=== PATIENT | male | born 1935 | race Caucasian/White ===

== ENCOUNTER → 2019-09-24 12:45 | Outpatient (CLI) | payer MEDICARE | END | disposition home or self-care (01) | LOC: D.RAD 12:45 | PROVIDERS: ATTEND Family Medicine | DX: R13.12 Dysphagia, oropharyngeal phase (principal); I48.91 Unspecified atrial fibrillation ==

== ENCOUNTER 2019-10-06 16:49 | Inpatient (IN) | payer MEDICARE ==
[~2019-10-06] VITALS: Ht 182.9 cm; Wt 53.6 kg
[2019-10-06 17:14] VITALS: BP 134/98; BMI 16.3
--- NOTE | 2019-10-06 17:30 | NUR ---
PATIENT ADMITTED TO ROOM 2211. ADMISSION COMPLETE. IV SITED TO [facility] WITH ONE ATTEMPT WITH 22 GAUGE. FALL PRECAUTIONS IN PLACE. DENIES NEEDS. BED LOW. CALL CORDOBA AND PERSONAL ITEMS IN REACH. WILL CONTINUE TO MONTIOR. SON BRINGING MED LIST TO [facility].
[2019-10-06 17:45] LABS: BASOPHILS 0.4 % (0-2); EOSINOPHILS 3.7 % (0-7); HEMATOCRIT 34.7 % (42.0-54.0); HEMOGLOBIN 11.1 g/dL (13.5-17.5); IMMATURE GRANULOCYTES 0.3 % (0-5); MCH 31.1 pg (26.0-34.0); MCV 97.2 fL (80.0-100.0); MEAN PLATELET VOLUME 9.3 fL (7.4-10.4); MONOCYTES 6.6 % (2-11); PLATELET COUNT 300 10x3/uL (130-400); RBC 3.57 10x6/uL (4.20-6.10); RDW 14.8 % (11.5-14.5); WBC 7.8 10x3/uL (4.8-10.8)
[2019-10-06 17:59] LABS: INR 1.15 (0.85-1.17); PROTIME 14.6 SECONDS (11.6-15.0)
[2019-10-06 18:00] LABS: APTT 36.8 SECONDS (22.8-39.4)
[2019-10-06 18:11] LABS: CARBON DIOXIDE 29.5 mmol/L (21.0-32.0); CREATININE - SERUM 1.3 mg/dL (0.6-1.3); POTASSIUM - SERUM 4.5 mmol/L (3.5-5.1); PRE-ALBUMIN 13.6 mg/dL (18.0-35.7)
--- NOTE | 2019-10-06 18:25 | NUR ---
RESTING IN BED. DENIES NEEDS. WILL CONTINUE TO MONITOR.
[2019-10-06] MEDS ORDERED: ASPIRIN325 MG PO (19:17)
[2019-10-06] MEDS ORDERED: ULTRAM50 MG PO (19:18)
[2019-10-06] MEDS ORDERED: LOPRESSOR25 MG PO (19:18)
--- NOTE | 2019-10-06 19:45 | NUR ---
SUPINE IN BED, A&O X 4. REPORTS HE AMBULATES WELL WITH WALKER. WALKER BROUGHT TO ROOM. PT USES URINAL, MELINA IN USE. WILL CONTINUE TO MONITOR.
[2019-10-06 21:28] VITALS: BP 128/60
[2019-10-07] VITALS (7 sets, daily range): BP systolic 118–141; BP diastolic 62–88; Ht 182.9 cm; Wt 53.6 kg
[2019-10-07 04:40] LABS: BASOPHILS 0.3 % (0-2); EOSINOPHILS 2.8 % (0-7); HEMATOCRIT 33.5 % (42.0-54.0); HEMOGLOBIN 10.7 g/dL (13.5-17.5); IMMATURE GRANULOCYTES 0.1 % (0-5); LYMPHOCYTES 10.4 % (15-50); MCH 30.9 pg (26.0-34.0); MCHC 31.9 g/dL (31.0-37.0); MCV 96.8 fL (80.0-100.0); MEAN PLATELET VOLUME 9.2 fL (7.4-10.4); MONOCYTES 7.3 % (2-11); NEUTROPHILS 79.1 % (40-80); PLATELET COUNT 309 10x3/uL (130-400); RBC 3.46 10x6/uL (4.20-6.10); RDW 14.7 % (11.5-14.5); WBC 7.4 10x3/uL (4.8-10.8)
[2019-10-07 04:53] LABS: % SATURATION 15 % (15-55); IRON 30 ug/dl (35-150); TOTAL IRON BIND CAPACITY 192 ug/dl (260-445); UNSAT IRON BIND CAPACITY 162 ug/dl (150-375)
--- NOTE | 2019-10-07 05:11 | NUR ---
I have reviewed this patient and I concur with the Shift Assessment completed by the Licensed Practical Nurse today this shift.
[2019-10-07 05:19] LABS: ANION GAP 7.7 mmol/L (8-16); CALCIUM 7.9 mg/dL (8.5-10.1); CARBON DIOXIDE 30.5 mmol/L (21.0-32.0); CREATININE - SERUM 1.2 mg/dL (0.6-1.3); PHOSPHOROUS 3.3 mg/dL (2.5-4.9); POTASSIUM - SERUM 4.2 mmol/L (3.5-5.1); THYROID STIMULATING HORMONE 1.28 uIU/mL (0.36-3.74)
--- NOTE | 2019-10-07 08:00 | NUR ---
ASSESSMENT PER FLOW SHEET. PT IS WITHOUT DISTRESS.FALL PREVENTION IN PLACE WITH MELINA. DOOR OPEN TO MONITOR
--- NOTE | 2019-10-07 11:53 | NUR ---
TO OR VIA BED
--- NOTE | 2019-10-07 13:30 | NUR ---
MARKED TACYCARDIA SECONDARY TO ADMINISTRATION OF GLYCOPYRROLATE IN OR, PER AL CHEPE DEVELOPER ADVOCATE
--- NOTE | 2019-10-07 14:21 | NUR ---
BACK FROM OR. PATIENT IS AWAKE AND WITHOUT DISTRESS.FALL PREVENTION IN PLACE
--- NOTE | 2019-10-07 20:00 | NUR ---
A&0 X 4. UNABLE TO VOID. BLADDER SCAN READS +999ML. 14FR HENRY INSERTED. PT REPORTS IMMEDIATE RELIEF. 900MLS EMPTIED FROM BLADDER. SECURED TO RIGHT LEG. REDRESSED DRESSING AROUND NEW PEG. IV TO LEFT FOREARM OUT. CATHETER INTACT. WILL CONTINUE TO MONITOR.
[2019-10-07 23:06] LABS: BILIRUBIN NEGATIVE (NEGATIVE); GLUCOSE NEGATIVE (NEGATIVE); KETONE NEGATIVE (NEGATIVE); NITRITE NEGATIVE (NEGATIVE); SPECIFIC GRAVITY 1.015 (1.005-1.020); UROBILINOGEN NORMAL (NORMAL)
[2019-10-07 23:07] LABS: BACTERIA FEW /hpf (NEGATIVE); RED CELLS - URINE 0-5 /hpf (0-5); WHITE CELLS - URINE OCC /hpf (NEGATIVE)
[2019-10-08] VITALS (7 sets, daily range): BP systolic 93–1143; BP diastolic 48–77
[2019-10-08 05:30] LABS: BASOPHILS 0 % (0-2); EOSINOPHILS 0 % (0-7); HEMATOCRIT 33.5 % (42.0-54.0); HEMOGLOBIN 10.6 g/dL (13.5-17.5); IMMATURE GRANULOCYTES 0.3 % (0-5); MCH 30.6 pg (26.0-34.0); MCHC 31.6 g/dL (31.0-37.0); MCV 96.8 fL (80.0-100.0); MEAN PLATELET VOLUME 9.3 fL (7.4-10.4); MONOCYTES 5.7 % (2-11); PLATELET COUNT 283 10x3/uL (130-400); RBC 3.46 10x6/uL (4.20-6.10); RDW 14.6 % (11.5-14.5)
[2019-10-08 05:36] LABS: WBC 14.4 10x3/uL (4.8-10.8)
[2019-10-08 05:55] LABS: ANION GAP 11.7 mmol/L (8-16); CALCIUM 7.8 mg/dL (8.5-10.1); CARBON DIOXIDE 26.8 mmol/L (21.0-32.0); CREATININE - SERUM 1.1 mg/dL (0.6-1.3); POTASSIUM - SERUM 4.5 mmol/L (3.5-5.1)
[2019-10-08 06:00] LABS: PHOSPHOROUS 4.4 mg/dL (2.5-4.9)
--- NOTE | 2019-10-08 08:00 | NUR ---
ASSESSMENT PER FLOW SHEET. PATIENT IS WITHOUT DISTRESS.FALL PREVENTION IN PLACE.
--- NOTE | 2019-10-08 10:01 | NUR ---
NUTRITION F/U TUBE FEED ORDERS WRITTEN PER MD CONSULT. WILL NEED TO MONITOR LABS FOR SIGNS OF REFEEDING SYNDROME. MAY REQUIRE TUBE FEED RATE ADJUSTMENT AFTER D/C DEPENDING ON WT GAIN/LOSS. RD FOLLOWING
--- NOTE | 2019-10-08 12:08 | MORECARE ---
CASE MANAGEMENT DISCHARGE SUMMARY PATIENT: SHE MULTANI UNIT: [id number] ADM DATE: 10/06/19 AGE: 84 : 33 SEX: M ROOM/BED: D.2211 AUTHOR: ELSIE SHELTON PHYSICIAN: REFERRING PHYSICIAN: HAKAN MEYER MD DATE OF SERVICE: 10/08/19 Discharge Plan Patient Name: SHE MULTANI Facility: [facility]:[place] : 1935 Planned Disposition: Home with Home Health Anticipated Discharge Date: Discharge Date: Expected LOS: Initial Reviewer: [email or web address] Initial Review Date: 10/06/2019 Generated: 10/08/19 1:08 pm DCPIA - Discharge Planning Initial Assessment Updated by [email or web address]: Charlene Ng on 10/08/19 12:03 pm * Is the patient Alert and Oriented? Yes * How many steps to enter\exit or inside your home? * PCP NANNETTE LIRA * Pharmacy [facility] * Preadmission Environment Home with Family * ADLs Independent * Equipment Grab Bars Rolling Walker Wheelchair * List name and contact numbers for known caregivers / representatives who currently or will assist patient after discharge: YEVGENIY (NEPHEW) [phone] * Verbal permission to speak to the caregivers and representatives has been obtained from the patient. N/A * Community resources currently utilized None * Additional services required to return to the preadmission environment? Yes * Can the patient safely return to the preadmission environment? Yes * Has this patient been hospitalized within the prior 30 days at any hospital? No Patient Name: SHE MULTANI Page [phone] at 1208 All edits/amendments must be made on the electronic document DICTATION DATE: 10/08/191207 MATHEMATICS LECTURER: CYNDI 10/08/19 1208 RPT#: [id number] DC DATE: STATUS: ADM IN [facility] [address] [place] [address] END OF REPORT
--- NOTE | 2019-10-08 12:15 | MORECARE ---
CASE MANAGEMENT DISCHARGE SUMMARY PATIENT: SHE MULTANI UNIT: [id number] ADM DATE: 10/06/19 AGE: 84 : 33 SEX: M ROOM/BED: D.2211 AUTHOR: CATDOC PHYSICIAN: REFERRING PHYSICIAN: HAKAN MEYER MD DATE OF SERVICE: 10/08/19 Discharge Plan Patient Name: SHE MULTANI Facility: [facility]:[place] : 1935 Planned Disposition: Home with Home Health Anticipated Discharge Date: Discharge Date: Expected LOS: Initial Reviewer: [email or web address] Initial Review Date: 10/06/2019 Generated: 10/08/19 1:14 pm Comments DCP- Discharge Planning Updated by [email or web address]: Charlene Ng on 10/08/19 11:[address] Patient Name: SHE MULTANI Admission Status: Elective Accout number: [id number] Admission Date: 10-06-2019 : 1935 Admission Diagnosis: Attending: HAKAN MEYER Current LOS: 2 Anticipated DC Date: Planned Disposition: Home with Home Health Primary Insurance: MEDICARE A & B Discharge Planning Comments: CM met with patient to complete initial dc planning assessment. CM educated patient on the CM role and verbal consent given by patient to complete assessment. Patient lives at home with his nephew. At discharge patient plans to return home and feels this is a safe discharge. CM discussed availability of home health, rehab services, and medical equipment. Patient has a wheelchair, walker and grab bars at home. His nephew will be his regional flatbed truck driver home. He has a new PEG tube and will need teaching and education on that. EUGENE signed with [facility]. I will send referral to [facility]. Patient denied known discharge needs at this time. CM will continue to follow and will assist as needed with dc plans/needs. Band Booker: Charlene Ng DCPIA - Discharge Planning Initial Assessment Updated by [email or web address]: Charlene Ng on 10/08/19 12:03 pm * Is the patient Alert and Oriented? Yes * How many steps to enter\exit or inside your home? * PCP NANNETTE LIRA * Pharmacy [facility] [address] * Preadmission Environment Home with Family * ADLs Independent * Equipment Grab Bars Rolling Walker Wheelchair * List name and contact numbers for known caregivers / representatives who currently or will assist patient after discharge: YEVGENIY (NEPHEW) [phone] * Verbal permission to speak to the caregivers and representatives has been obtained from the patient. N/A * Community resources currently utilized None * Additional services required to return to the preadmission environment? Yes * Can the patient safely return to the preadmission environment? Yes * Has this patient been hospitalized within the prior 30 days at any hospital? No Last DP export: 10/08/19 11:08 a Patient Name: SHE MULTANI Page [phone] at 1215 All edits/amendments must be made on the electronic document DICTATION DATE: 10/08/191213 HISTORICAL INTERPRETER: CYNDI 10/08/191213 RPT#: [id number] DC DATE: STATUS: ADM IN [facility] [address] [place] [address] END OF REPORT
--- NOTE | 2019-10-08 12:28 | MORECARE ---
CASE MANAGEMENT DISCHARGE SUMMARY PATIENT: SHE MULTANI UNIT: [id number] ADM DATE: 10/06/19 AGE: 84 : 33 SEX: M ROOM/BED: D.2211 AUTHOR: CATDOC PHYSICIAN: REFERRING PHYSICIAN: HAKAN MEYER MD DATE OF SERVICE: 10/08/19 Discharge Plan Patient Name: SHE MULTANI Facility: [facility]:[place] : 1935 Planned Disposition: Home with Home Health Anticipated Discharge Date: Discharge Date: Expected LOS: Initial Reviewer: [email or web address] Initial Review Date: 10/06/2019 Generated: 10/08/19 1:27 pm Comments DCP- Discharge Planning Updated by [email or web address]: Charlene Ng on 10/08/19 11:[address] Patient Name: SHE MULTANI Admission Status: Elective Accout number: [id number] Admission Date: 10-06-2019 : 1935 Admission Diagnosis: Attending: HAKAN MEYER Current LOS: 2 Anticipated DC Date: Planned Disposition: Home with Home Health Primary Insurance: MEDICARE A & B Discharge Planning Comments: CM met with patient to complete initial dc planning assessment. CM educated patient on the CM role and verbal consent given by patient to complete assessment. Patient lives at home with his nephew. At discharge patient plans to return home and feels this is a safe discharge. CM discussed availability of home health, rehab services, and medical equipment. Patient has a wheelchair, walker and grab bars at home. His nephew will be his septic pump truck driver home. He has a new PEG tube and will need teaching and education on that. EUGENE signed with [facility]. I will send referral to [facility]. Patient denied known discharge needs at this time. CM will continue to follow and will assist as needed with dc plans/needs. Photographic Plate Maker: Charlene Ng DCPIA - Discharge Planning Initial Assessment Updated by [email or web address]: Charlene Ng on 10/08/19 12:03 pm * Is the patient Alert and Oriented? Yes * How many steps to enter\exit or inside your home? * PCP NANNETTE LIRA * Pharmacy [facility] [address] * Preadmission Environment Home with Family * ADLs Independent * Equipment Grab Bars Rolling Walker Wheelchair * List name and contact numbers for known caregivers / representatives who currently or will assist patient after discharge: YEVGENIY (NEPHEW) [phone] * Verbal permission to speak to the caregivers and representatives has been obtained from the patient. N/A * Community resources currently utilized None * Additional services required to return to the preadmission environment? Yes * Can the patient safely return to the preadmission environment? Yes * Has this patient been hospitalized within the prior 30 days at any hospital? No External Providers External Provider: [facility] Next Contact Date: Service Request Date: Service Type: Resolution: Reviewer: Comments: Last DP export: 10/08/19 11:15 a Patient Name: SHE MULTANI Page [phone] at 1228 All edits/amendments must be made on the electronic document DICTATION DATE: 10/08/191226 CLINICAL MATERIAL HANDLER: CYNDI 10/08/197 RPT#: [id number] DC DATE: STATUS: ADM IN [facility] [address] [place] [address] END OF REPORT
--- NOTE | 2019-10-08 12:46 | NUR ---
NUTRITION F/U TUBE FEED RECOMMENDATIONS FOR PT AT DISCHARGE. 1)CHANGE TUBE FEEDS TO BOLUS. 2)ONE CAN JEVITY 1.2 SIX TIMES PER DAY TOLERATED. ONE CAN AT 7 AM, 10 AM, 1 PM, 4 PM, 7 PM, 10 PM. 3)50 CC H2O FLUSH BEFORE AND AFTER EACH BOLUS. 4)UP TO CHAIR OR HOB > 30 DEGREES WITH EACH BOLUS. 5)MONITOR WT WEEKLY AND ADJUST TUBE FEEDS IF NEEDED. RD FOLLOWING
--- NOTE | 2019-10-08 13:00 | NUR ---
TUBE FEEDING STARTED AT 20CC AN HOUR.FLUSH 25/HR.
--- NOTE | 2019-10-08 13:34 | MORECARE ---
CASE MANAGEMENT DISCHARGE SUMMARY PATIENT: SHE MULTANI UNIT: [id number] ADM DATE: 10/06/19 AGE: 84 : 33 SEX: M ROOM/BED: D.2211 AUTHOR: CATDOC PHYSICIAN: REFERRING PHYSICIAN: HAKAN MEYER MD DATE OF SERVICE: 10/08/19 Discharge Plan Patient Name: SHE MULTANI Facility: [facility]:[place] : 1935 Planned Disposition: Home with Home Health Anticipated Discharge Date: Discharge Date: Expected LOS: Initial Reviewer: [email or web address] Initial Review Date: 10/06/2019 Generated: 10/08/19 2:33 pm Comments DCP- Discharge Planning Updated by [id number]: Charlene Ng on 10/08/19 11:[address] Patient Name: SHE MULTANI Admission Status: Elective Accout number: [id number] Admission Date: 10-06-2019 : 1935 Admission Diagnosis: Attending: HAKAN MEYER Current LOS: 2 Anticipated DC Date: Planned Disposition: Home with Home Health Primary Insurance: MEDICARE A & B Discharge Planning Comments: CM met with patient to complete initial dc planning assessment. CM educated patient on the CM role and verbal consent given by patient to complete assessment. Patient lives at home with his nephew. At discharge patient plans to return home and feels this is a safe discharge. CM discussed availability of home health, rehab services, and medical equipment. Patient has a wheelchair, walker and grab bars at home. His nephew will be his jinriksha driver home. He has a new PEG tube and will need teaching and education on that. VIKAS signed with [facility]. I will send referral to [facility]. Patient denied known discharge needs at this time. CM will continue to follow and will assist as needed with dc plans/needs. Case Technician: Charlene Ng DCPIA - Discharge Planning Initial Assessment Updated by [email or web address]: Charlene Ng on 10/08/19 12:03 pm * Is the patient Alert and Oriented? Yes * How many steps to enter\exit or inside your home? * PCP NANNETTE LIRA * Pharmacy [facility] [address] * Preadmission Environment Home with Family * ADLs Independent * Equipment Grab Bars Rolling Walker Wheelchair * List name and contact numbers for known caregivers / representatives who currently or will assist patient after discharge: YEVGENIY (NEPHEW) [phone] * Verbal permission to speak to the caregivers and representatives has been obtained from the patient. N/A * Community resources currently utilized None * Additional services required to return to the preadmission environment? Yes * Can the patient safely return to the preadmission environment? Yes * Has this patient been hospitalized within the prior 30 days at any hospital? No External Providers External Provider: [facility] Next Contact Date: Service Request Date: Service Type: Resolution: Reviewer: Comments: Coverage Notice Reviewer: [email or web address] Antonieta Ng Notice Issued Date-Time: 10/08/2019 9:20 Notice Type: IM Discharge Notice Notice Delivered To: Patient Relationship to Patient: Supervisor Small Appliance Assembly Name: Delivery Method: HAND - Hand Delivered Cecy Days: Prior Verbal Notification: Recipient Understood Notice: Yes Recipient Signature: Yes Med Rec Note Co-signed by Attending: Coverage Notice Comment: Reviewer: [email or web address] Ng Notice Issued Date-Time: 10/08/2019 9:30 Notice Type: Patient Choice Letter Notice Delivered To: Patient Relationship to Patient: Supervisor Small Appliance Assembly Name: Delivery Method: HAND - Hand Delivered Cecy Days: Prior Verbal Notification: Recipient Understood Notice: Yes Recipient Signature: Yes Med Rec Note Co-signed by Attending: Coverage Notice Comment: vikas hall Last DP export: 10/08/19 11:28 a Patient Name: SHE MULTANI Page [phone] at 1334 All edits/amendments must be made on the electronic document DICTATION DATE: 10/08/19 1333 ARCHITECTURAL JOB CAPTAIN: CYNDI 10/08/19 1333 RPT#: [id number] DC DATE: STATUS: ADM IN [facility] [address] [place] [address] END OF REPORT
--- NOTE | 2019-10-08 21:01 | NUR ---
PEG TUBE RESIDUAL 85ML. HOLDING TUBE FEED AT 20ML/HR RIGHT NOW. WILL CHECK RESIDUAL AGAIN IN A COUPLE OF HOURS IF RESIDUAL HAS DECREASED I WILL INCREASE TUBE FEEDING. CALL LIGHT IN REACH. BED LOWERED AND LOCKED. PT STATES NO NEEDS AT THIS TIME.
--- NOTE | 2019-10-08 21:30 | NUR ---
PT IV INFULTRATED. NEW IV SITE RT FA 22G. ATTEMPTSX1. PT TOLERATED WELL. WILL CONTINUE FLUIDS. CALL LIGHT IN REACH. BED LOWERED AND LOCKED.
[2019-10-09] VITALS (10 sets, daily range): BP systolic 109–149; BP diastolic 53–78
--- NOTE | 2019-10-09 01:35 | NUR ---
PT RESTING IN BED. EYES CLOSED. NO SIGNS OF DISTRESS. BREATHING EVEN AND UNLABORED. IV SITE RT FA DRESSING CLEAN DRY AND INTACT. NO SIGNS OF INFECTION OR INFULTRATION. LUNG SOUNDS SIMINISHED INN LOWER LOBES. BOWEL SOUNDS ACTIVE. PEG TUBE LT ABD DRESSING CLEAN DRY AND INTACT. JEVITY 1.[address] HENRY IN [address]. WILL CONTINUE PLAN OF CARE. CALL LIGHT IN REACH. BED LOWERED AND LOCKED. BED RAILS UPX2. MELINA ALARM ON.
--- NOTE | 2019-10-09 02:02 | NUR ---
PEG TUBE RESIDUAL 50ML. INCREASED FEEDING BY 10CC/HR. NOW AT 30CC/HR. WILL CONITNUE TO MONITOR. CALL LIGHT IN REACH. BED LOWERED AND LOCKED.
[2019-10-09 04:45] LABS: BASOPHILS 0.1 % (0-2); EOSINOPHILS 0 % (0-7); HEMATOCRIT 37.1 % (42.0-54.0); HEMOGLOBIN 11.9 g/dL (13.5-17.5); IMMATURE GRANULOCYTES 0.7 % (0-5); LYMPHOCYTES 5.1 % (15-50); MCH 31.1 pg (26.0-34.0); MCHC 32.1 g/dL (31.0-37.0); MCV 96.9 fL (80.0-100.0); MEAN PLATELET VOLUME 9.4 fL (7.4-10.4); NEUTROPHILS 89.1 % (40-80); RBC 3.83 10x6/uL (4.20-6.10); RDW 14.6 % (11.5-14.5)
--- NOTE | 2019-10-09 04:48 | NUR ---
I have reviewed this patient and I concur with the Shift Assessment completed by the Licensed Practical Nurse today this shift.
[2019-10-09 04:56] LABS: PLATELET COUNT 362 10x3/uL (130-400)
[2019-10-09 05:17] LABS: ANION GAP 10.5 mmol/L (8-16); CALCIUM 8.2 mg/dL (8.5-10.1); CARBON DIOXIDE 27.6 mmol/L (21.0-32.0); CREATININE - SERUM 1.1 mg/dL (0.6-1.3); MAGNESIUM - SERUM 1.9 mg/dL (1.8-2.4); POTASSIUM - SERUM 4.1 mmol/L (3.5-5.1)
[2019-10-09 05:24] LABS: PHOSPHOROUS 2.6 mg/dL (2.5-4.9)
--- NOTE | 2019-10-09 07:30 | NUR ---
PATIENT CO OF REAL BAD ABDOMINAL PAIN. WILL TREAT WILL TYLENOL AND ULTRAM INSTEAD TO SEE IF THAT DOES BETTER THAN THE MORPHINE. WILL NOTIFY DR OTOOLE.
--- NOTE | 2019-10-09 09:10 | NUR ---
DR OTOOLE SET VOLUME ON FEEDING PUMP TO 50 ML/H. AUSCULTATED PLACEMENT BEFORE MEDICATIONS. TOLERATED MEDS WELL. CL IN REACH. ICE PACK ON STOMACH. NO FURTHER NEEDS AT THIS TIME. EDUARDO
--- NOTE | 2019-10-09 10:46 | NUR ---
FAMILY IN ROOM. NO NEEDS AT THIS TIME. STATES HE IS FINE. CL IN REACH. TM
--- NOTE | 2019-10-09 13:29 | MORECARE ---
CASE MANAGEMENT DISCHARGE SUMMARY PATIENT: SHE MULTANI UNIT: [id number] ADM DATE: 10/06/19 AGE: 84 : 33 SEX: M ROOM/BED: D.2211 AUTHOR: CATDOC PHYSICIAN: REFERRING PHYSICIAN: HAKAN MEYER MD DATE OF SERVICE: 10/09/19 Discharge Plan Patient Name: SHE MULTANI Facility: [facility]:[place] : 1935 Planned Disposition: Home with Home Health Anticipated Discharge Date: Discharge Date: Expected LOS: Initial Reviewer: [email or web address] Initial Review Date: 10/06/2019 Generated: 10/09/19 2:29 pm Comments DCP- Discharge Planning Updated by [email or web address]: Charlene Ng on 10/09/19 12:[address] PATIENT WILL BE ACCEPTED BY [employer] [facility] [employer] WILL PROVIDE HIS FEEDING SUPPLY. MITCH CASILLAS WILL BE CONTACTING THE PATIENT'S NEPHEW TO SET UP A TEACH TIME. I SPOKE WITH YEVGENIY HIS NEPHEW THIS MORNING ABOUT WHAT THE PLAN WAS. HE STATED THAT HIS UNCLE CALLED HIM ALL NIGHT LONG AND WAS VERY CONFUSED AND HE IS USUALLY NOT CONFUSED AT ALL. CM WILL CONTINUE TO FOLLOW AND ASSIST NEEDED DCP- Discharge Planning Updated by [email or web address]: Charlene Ng on 10/08/19 11:[address] Patient Name: SHE MULTANI Admission Status: Elective Accout number: [id number] Admission Date: 10-06-2019 : 1935 Admission Diagnosis: Attending: HAKAN MEYER Current LOS: 2 Anticipated DC Date: Planned Disposition: Home with Home Health Primary Insurance: MEDICARE A & B Discharge Planning Comments: CM met with patient to complete initial dc planning assessment. CM educated patient on the CM role and verbal consent given by patient to complete assessment. Patient lives at home with his nephew. At discharge patient plans to return home and feels this is a safe discharge. CM discussed availability of home health, rehab services, and medical equipment. Patient has a wheelchair, walker and grab bars at home. His nephew will be his port cdl a driver home. He has a new PEG tube and will need teaching and education on that. VIKAS signed with [facility]. I will send referral to [facility]. Patient denied known discharge needs at this time. CM will continue to follow and will assist as needed with dc plans/needs. Beaver Trapper: Charlene Ng DCPIA - Discharge Planning Initial Assessment Updated by [email or web address]: Charlene Ng on 10/08/19 12:03 pm * Is the patient Alert and Oriented? Yes * How many steps to enter\exit or inside your home? * PCP NANNETTE LIRA * Pharmacy [facility] [address] * Preadmission Environment Home with Family * ADLs Independent * Equipment Grab Bars Rolling Walker Wheelchair * List name and contact numbers for known caregivers / representatives who currently or will assist patient after discharge: YEVGENIY (NEPHEW) [phone] * Verbal permission to speak to the caregivers and representatives has been obtained from the patient. N/A * Community resources currently utilized None * Additional services required to return to the preadmission environment? Yes * Can the patient safely return to the preadmission environment? Yes * Has this patient been hospitalized within the prior 30 days at any hospital? No Coverage Notice Reviewer: [email or web address] - Charlene Ng Notice Issued Date-Time: 10/08/2019 9:20 Notice Type: IM Discharge Notice Notice Delivered To: Patient Relationship to Patient: Bailer Operators Supervisor Name: Delivery Method: HAND - Hand Delivered Cecy Days: Prior Verbal Notification: Recipient Understood Notice: Yes Recipient Signature: Yes Med Rec Note Co-signed by Attending: Coverage Notice Comment: Reviewer: [id number] Antonieta Ng Notice Issued Date-Time: 10/08/2019 9:30 Notice Type: Patient Choice Letter Notice Delivered To: Patient Relationship to Patient: Bailer Operators Supervisor Name: Delivery Method: HAND - Hand Delivered Cecy Days: Prior Verbal Notification: Recipient Understood Notice: Yes Recipient Signature: Yes Med Rec Note Co-signed by Attending: Coverage Notice Comment: vikas hall Last DP export: 10/08/19 12:34 p Patient Name: SHE MULTANI Page [phone] at 1329 All edits/amendments must be made on the electronic document DICTATION DATE: 10/09/19 1329 PATROL SERGEANT SHERIFF'S OFFICE: CYNDI 10/09/19 1329 RPT#: [id number] DC DATE: STATUS: ADM IN [facility] [address] [place] [address] END OF REPORT
--- NOTE | 2019-10-09 19:44 | NUR ---
TELEPHONE CONSENT RECD FROM YEVGENIY DUGGAN (NEPHEW) STATING THAT HE IS THE PT ONLY RELATIVE. YEVGENIY DUGGAN INFORMED OF PROCEDURE/REASON FOR PROCEDURE/ANESTHESIA/BLOOD OR BLOOD PRODUCT USED IF NEEDED. PT NEPHSAGE KELLY DUGGAN VERBALIZED UNDERSTANDING AND GIVES PERMISSION FOR PROCUDURE TO TAKE PLACE AND BE PERFOMED BY DR OTOOLE. TELEPHONE CONSENT VERIFIED BY LIAN ORTIZ RN. DR OTOOLE ON FLOOR AND SPEAKING ON TELEPHONE WITH PT NEPHASGE DUGGAN WELL. YEVGENIY DUGGAN DENIES FURTHER QUESTIONS/CONCERNS AT THIS TIME.
--- NOTE | 2019-10-09 20:04 | NUR ---
ASSESSED AT THE BEGINNING OF THE SHIFT. PT WAS CONFUSED AND C/O BEING MADE TO GO HAVE A C T SCAN. WHILE GETTING REPORT NURSE WAS ADVISED MD WAS SETTING UP TO HAVE SURGERY. HIS NEPHEW WAS CONTACTED AND SURGERY OK'D AND THEN HE RECEIVED A HIBICLINS BATH. JUST BEFORE 1999 SURGERY CAME AND WHEELED HIM TO SURGERY.
--- NOTE | 2019-10-09 23:25 | NUR ---
RETURNED TO FLOOR FROM RECOVERY. SLEEPING QUIET WITH NO DISTRESS NOTED. G-TUBE CLAMPED AND ORDERS FOR MEDS ONLY THROUGH THE TUBE AT THIS TIME.
[2019-10-10] VITALS: BP 117/58
[2019-10-10 04:00] VITALS: BP 102/45
[2019-10-10 06:10] LABS: BASOPHILS 0 % (0-2); EOSINOPHILS 0.1 % (0-7); HEMATOCRIT 31.9 % (42.0-54.0); HEMOGLOBIN 10.1 g/dL (13.5-17.5); IMMATURE GRANULOCYTES 0.7 % (0-5); LYMPHOCYTES 3.5 % (15-50); MCH 30.5 pg (26.0-34.0); MCHC 31.7 g/dL (31.0-37.0); MCV 96.4 fL (80.0-100.0); MEAN PLATELET VOLUME 9.4 fL (7.4-10.4); MONOCYTES 3.5 % (2-11); NEUTROPHILS 92.2 % (40-80); RBC 3.31 10x6/uL (4.20-6.10); RDW 14.5 % (11.5-14.5); WBC 18.1 10x3/uL (4.8-10.8)
[2019-10-10 06:30] LABS: CALC OSMOLALITY 275 mosm/kg (275-300); CALCIUM 7.7 mg/dL (8.5-10.1); CARBON DIOXIDE 28.9 mmol/L (21.0-32.0); CHLORIDE - SERUM 103 mmol/L (98-107); CREATININE - SERUM 0.9 mg/dL (0.6-1.3); GLUCOSE 121 mg/dL (74-106); MAGNESIUM - SERUM 1.8 mg/dL (1.8-2.4); POTASSIUM - SERUM 4.1 mmol/L (3.5-5.1); SODIUM 137 mmol/L (136-145); eGFR NON AFRICAN AMERICAN 85 mL/min (90-120)
[2019-10-10 06:31] LABS: PHOSPHOROUS 1.9 mg/dL (2.5-4.9); PLATELET COUNT 265 10x3/uL (130-400); UREA NITROGEN 15 mg/dL (7-18)
--- NOTE | 2019-10-10 08:03 | NUR ---
PT RESTING IN BED WITH EYES CLOSED, EASILY AROUSED TO SPEECH. PT IS ALERT, SLIGHTLY CONFUSED, SPEECH IS QUIET, SLIGHTLY GARBLED AND HARD TO UNDERSTAND. IV LOCATED TO LEFT FOREARM RUNNING PROCAL @ 125ML/HR. NO CURRENT S/S OF DISTRESS, DENIES NEEDS, WILL CONT TO MONITOR.
[2019-10-10 08:29] VITALS: BP 121/67; BP 121/75
[2019-10-10 12:47] VITALS: BP 125/68
[2019-10-10 16:45] VITALS: BP 117/60
--- NOTE | 2019-10-10 19:00 | NUR ---
BEDSIDE REPORT RECEIVED AND CARE OF PT ASSUMED. PT LYING IN MID CORDERO'S POSITION WITH EYES CLOSED. RE-PLACED O2 PT HAD IT PULLED UP ON HIS HEAD. IV TO LEFT FA PATENT WITH PROCAL INFUISNG AT 125 ML/HR, AND NS AT KVO. IV TO RIGHT FA PATENT WITH IRON INFUSING AT THIS TIME. HENRY CATHETER DRAINING TO GRAVITY WITH YELLOW URINE IN COLLECTION BAG. G-TUBE CLAMPED. ABDOMINAL BINDER IN PLACE. WILL MONITOR FOR NEEDS.
--- NOTE | 2019-10-10 19:13 | OP ---
PATIENT NAME: SHE MULTANI MEDICAL RECORD: [id number] :33 LOCATION:[facility] ADMISSION DATE:10/06/19 SURGEON: DERRICK OTOOLE MD DATE OF OPERATION: 10/09/2019 SURGEON: Derrick Otoole MD PREOPERATIVE DIAGNOSES: 1. Intraabdominal abscess. 2. History of PEG tube. 3. Gastrostomy tube dysfunction. 4. Dysphagia. 5. Severe protein-calorie malnutrition. POSTOPERATIVE DIAGNOSES: 1. Intra-abdominal abscess. 2. History of PEG tube. 3. Gastrostomy tube dysfunction. 4. Dysphagia. 5. Severe protein-calorie malnutrition. PROCEDURE PERFORMED: Diagnostic laparoscopy with drainage of intra-abdominal abscess and gastropexy. ANESTHESIA: General. COMPLICATIONS: None. SPECIMENS: None. Case was contaminated. OPERATIVE COURSE: After consent was obtained, the patient was taken to the operating room and placed in supine position on the OR table. Next, general anesthesia was given via endotracheal intubation after a timeout was taken to confirm the correct patient and procedure. The abdomen was prepped and draped in typical sterile fashion. The G-tube was noted to be at 4 cm. At time of PEG placement, the PEG tube was secured at 2 cm. The preoperative imaging showed a 5 x 6 cm fluid collection with gas between the anterior surface of the stomach and the peritoneum as well as pneumoperitoneum. Local anesthetic was injected into the right upper quadrant. A stab incision was made with 11-blade scalpel. Using a 5-mm bladeless optical trocar, the abdomen was entered under direct laparoscopic vision. Adequate pneumoperitoneum was achieved. Two additional 5-mm trocars were placed; one at the umbilicus and one into the right lateral quadrant. Both trocars were placed under direct laparoscopic vision. The gastrostomy tube was noted to be running through some omentum and into the stomach. Manipulation of the gastrostomy tube did move the anterior surface of the stomach. The omentum was gently and bluntly dissected off the peritoneum. When this was performed, an abscess cavity was entered and suctioned and irrigated. There was a contained abscess collection between the omentum and the peritoneum on the anterior surface of the stomach. This was copiously irrigated and suctioned. At this time, anterior surface of the stomach was sutured to the anterior abdominal wall using 0 silk suture by seromuscular bites in the anterior stomach and into the peritoneum and anterior abdominal wall and sutured intracorporeally. This was done 3 times on the stomach to secure the stomach to OPERATIVE REPORT [id number] SHE MULTANI the anterior abdominal wall. All 3 needles were removed. A 2-0 stitch was then used on the anterior abdominal wall skin to secure the G-tube in place for further security of the tube. At this time, all 4 quadrants of the abdomen were then inspected. There is no evidence of bowel injury. No evidence of bleeding. The gastrostomy tube was within the lumen of the stomach. The stomach was well secured to the anterior abdominal wall with 3-0 silk sutures. At this time, the abdomen was desufflated. All remaining instruments were removed. The trocars were removed. The trocar sites were closed with gallito. At the end of the case, all needle and instrument counts were correct. No complications occurred. An abdominal binder was placed onto the patient. He was extubated and transferred to the PACU in stable condition. TRANSINT:[id number] Voice Confirmation ID: [id number] DOCUMENT ID: [id number] DERRICK OTOOLE MD at 1913 CC: [id number] DICTATION DATE: 10/09/192054 OUTSIDE MACHINIST HELPER: 10/10/19 043 [facility] IN [facility] [address] [id number]
[2019-10-10 20:00] VITALS: BP 123/75
--- NOTE | 2019-10-10 21:15 | NUR ---
HS MEDICATIONS GIVEN VIA PEG TUBE. ALSO GAVE TYLENOL AND DILAUDID PER REQUEST FOR SEVERE PAIN....PT STATES "I WILL KILL MYSELF IF YOU CANNOT GET MY PAIN UNDER CONTROL". WILL CONTINUE TO MONITOR FOR NEEDS.
[2019-10-11] VITALS: BP 149/87
--- NOTE | 2019-10-11 02:06 | NUR ---
PT VERY RESTLESS AND MOANING IN PAIN. GAVE DILAUDID 0.5 MG IVP PER PRN ORDER. WILL CONTINUE TO MONITOR FOR NEEDS. BED ALARM IN USE.
--- NOTE | 2019-10-11 02:30 | NUR ---
PT BATHED AND ALL LINENS AND GOWN CHANGED. POSITIONED ONTO RIGHT SIDE OFF OF REDDENED BUTTOCKS. BED ALARM IN USE. SIDE RAILS UP X3 FOR SAFETY.
[2019-10-11 04:00] VITALS: BP 169/91
[2019-10-11 06:05] LABS: BASOPHILS 0 % (0-2); EOSINOPHILS 0.1 % (0-7); HEMATOCRIT 34.4 % (42.0-54.0); IMMATURE GRANULOCYTES 0.4 % (0-5); LYMPHOCYTES 4.1 % (15-50); MCH 30.9 pg (26.0-34.0); MCV 96.6 fL (80.0-100.0); MEAN PLATELET VOLUME 9.6 fL (7.4-10.4); MONOCYTES 3.8 % (2-11); NEUTROPHILS 91.6 % (40-80); RBC 3.56 10x6/uL (4.20-6.10); RDW 14.4 % (11.5-14.5)
[2019-10-11 06:22] LABS: CARBON DIOXIDE 28.2 mmol/L (21.0-32.0); CHLORIDE - SERUM 97 mmol/L (98-107); GLUCOSE 120 mg/dL (74-106); SODIUM 130 mmol/L (136-145); eGFR NON AFRICAN AMERICAN 75 mL/min (90-120)
[2019-10-11 06:23] LABS: CALC OSMOLALITY 266 mosm/kg (275-300); MAGNESIUM - SERUM 2.3 mg/dL (1.8-2.4); POTASSIUM - SERUM 4.8 mmol/L (3.5-5.1); UREA NITROGEN 26 mg/dL (7-18)
[2019-10-11 06:27] LABS: PLATELET COUNT 332 10x3/uL (130-400)
[2019-10-11 07:39] VITALS: BP 155/92
--- NOTE | 2019-10-11 08:54 | NUR ---
HE IS CONFUSED, STATES "DON'T DO THIS TO ME". I ASKED IF HE WAS IN PAIN AND STATED "YES". PRN PAIN MED GIVEN. REPOSTIONED, THE BED ALARM IS ON AND IN PLACE.
[2019-10-11 11:47] VITALS: BP 149/88
[2019-10-11 15:19] VITALS: BP 153/83
--- NOTE | 2019-10-11 18:24 | NUR ---
HE PULLED OUT 2 IV'S. HE IS PICKING AT THE AIR. NEW IV'S 22 G TIMES 2, TO RIGHT ARM. PEG TUBE TO GRAVITY. HENRY CATH IN PLACE.
--- NOTE | 2019-10-11 19:00 | NUR ---
BEDSIDE REPORT RECEIVED AND CARE OF PT ASSUMED. PT MORE CONFUSED TODAY. IV TO LEFT FA PATENT WITH PROCAL INFUSING AT 125 ML/HR. HENRY CATHETER DRAINING TO GRAVITY WITH YELLOW URINE IN COLLECTION BAG. PEG TUBE DRAINING TO GRAVITY TO HENRY BAG. WILL MONITOR FOR NEEDS.
[2019-10-11 20:00] VITALS: BP 138/87
--- NOTE | 2019-10-11 20:18 | NUR ---
HS MEDICATIONS GIVEN VIA PEG TUBE...CLAMPED AFTER. GAVE DILAUDID IVP AND TYLENOL FOR PAIN. WILL CONTINUE TO MONITOR FOR NEEDS.
[2019-10-12] VITALS: BP 143/77
[2019-10-12 04:00] VITALS: BP 123/81
[2019-10-12 05:24] LABS: BASOPHILS 0.1 % (0-2); EOSINOPHILS 0.6 % (0-7); HEMATOCRIT 35.7 % (42.0-54.0); HEMOGLOBIN 11.5 g/dL (13.5-17.5); IMMATURE GRANULOCYTES 0.3 % (0-5); MCH 30.6 pg (26.0-34.0); MCHC 32.2 g/dL (31.0-37.0); MCV 94.9 fL (80.0-100.0); MEAN PLATELET VOLUME 9.8 fL (7.4-10.4); MONOCYTES 5.9 % (2-11); NEUTROPHILS 85.1 % (40-80); PLATELET COUNT 360 10x3/uL (130-400); RBC 3.76 10x6/uL (4.20-6.10); RDW 14.2 % (11.5-14.5); WBC 15.2 10x3/uL (4.8-10.8)
[2019-10-12 05:55] LABS: CALC OSMOLALITY 266 mosm/kg (275-300); CALCIUM 8.1 mg/dL (8.5-10.1); CARBON DIOXIDE 29.3 mmol/L (21.0-32.0); CHLORIDE - SERUM 95 mmol/L (98-107); GLUCOSE 105 mg/dL (74-106); MAGNESIUM - SERUM 2.4 mg/dL (1.8-2.4); POTASSIUM - SERUM 5.5 mmol/L (3.5-5.1); SODIUM 130 mmol/L (136-145); UREA NITROGEN 29 mg/dL (7-18); eGFR NON AFRICAN AMERICAN 75 mL/min (90-120)
--- NOTE | 2019-10-12 08:32 | NUR ---
HE IS CONFUSED THIS MORNING, PICKING AT THE AIR. REMOVING HIS HIS CLOTHES.
[2019-10-12 08:58] VITALS: BP 101/67
--- NOTE | 2019-10-12 13:43 | NUR ---
Nutrition follow-up: TF has been on hold per physician 2/2 surgery ProcalAmine PPN started @ 125 ml/hr Osmolite 1.0 sourav restarted today/Dr. Christianson Recommend advancing to goal rate of 70 ml/hr with 25 ml H2O flush q hour RDN following.
[2019-10-12 13:49] VITALS: BP 136/87
[2019-10-12 16:39] VITALS: BP 145/91
--- NOTE | 2019-10-12 19:45 | NUR ---
ALERT, CONFUSED. REORIENTED TO PLACE AND TIME. PT WILL NC OFF, REAPPLIED. TUBE FEEDING AT 30ML/HR. NO RESIDUAL NOTED. AUSCULTATED FOR PLACEMENT. PT CONFIRMS PAIN, BUT UNABLE TO RATE ON SCALE OF 1-10. WILL CONTINUE TO MONITOR.
[2019-10-12 20:00] VITALS: BP 127/75
[2019-10-13] VITALS: BP 138/82
[2019-10-13 04:00] VITALS: BP 152/71
[2019-10-13 06:03] LABS: BASOPHILS 0.1 % (0-2); EOSINOPHILS 0.1 % (0-7); HEMATOCRIT 31.2 % (42.0-54.0); HEMOGLOBIN 10.3 g/dL (13.5-17.5); IMMATURE GRANULOCYTES 0.4 % (0-5); LYMPHOCYTES 4.6 % (15-50); MCH 30.7 pg (26.0-34.0); MEAN PLATELET VOLUME 9.3 fL (7.4-10.4); MONOCYTES 9.1 % (2-11); NEUTROPHILS 85.7 % (40-80); PLATELET COUNT 312 10x3/uL (130-400); RBC 3.36 10x6/uL (4.20-6.10); RDW 13.9 % (11.5-14.5); WBC 16.8 10x3/uL (4.8-10.8)
[2019-10-13 06:13] LABS: MCV 92.9 fL (80.0-100.0)
[2019-10-13 06:26] LABS: CALC OSMOLALITY 270 mosm/kg (275-300); CALCIUM 7.7 mg/dL (8.5-10.1); CHLORIDE - SERUM 96 mmol/L (98-107); GLUCOSE 144 mg/dL (74-106); MAGNESIUM - SERUM 2.2 mg/dL (1.8-2.4); SODIUM 130 mmol/L (136-145); UREA NITROGEN 32 mg/dL (7-18); eGFR NON AFRICAN AMERICAN 75 mL/min (90-120)
[2019-10-13 06:27] LABS: POTASSIUM - SERUM 4.2 mmol/L (3.5-5.1)
--- NOTE | 2019-10-13 07:00 | NUR ---
PT IS RESTING IN BED WITH EYES OPEN. RESPIRATIONS ARE SHALLOW/UNLABORED. PT IS CONFUSED X 4 AND ATTEMPTS MADE TO REORIENT UNSUCCESSFUL. PEG TUBE NOTED TO LEFT ABDOMEN INFUSING TUBE FEED @ 50/HR WITHOUT DIFFICULTY. HOB @ 30 DEGREES. ATTEMPT MADE TO PLACE ABD BINDER PT IS NOT COOPERATIVE AT THIS TIME. HENRY CATHETER NOTED AND DRAINING WITHOUT DIFFICULTY. STAT LOCK IN PLACE. PT REFUSING TO KEEP NC IN PLACE FOR O2. WILL CONT TO ATTEMPT TO KEEP IN PLACE. ALL FALL PRECAUTIONS IN PLACE. BED IS IN THE LOWEST POSITION. CALL LIGHT AND BEDSIDE TABLE ARE WITHIN REACH. SIDE RAILS X 2. WILL CONT TO MONITOR.
--- NOTE | 2019-10-13 07:45 | NUR ---
PT WITH INCONTINENT EPISODE OF BOWEL. SHOWER GIVEN COMPLETE BED LINEN CHANGE DONE. ALL FALL PRECAUTIONS IN PLACE. BED IS IN THE LOWEST POSITION. CALL LIGHT AND BEDSIDE TABLE ARE WITHIN REACH. SIDE RAILS X 2. WILL CONT TO MONITOR.
[2019-10-13 08:10] VITALS: BP 142/78
--- NOTE | 2019-10-13 08:59 | NUR ---
LISA CHEW APRN NOTIFIED OF EKG RESULTS. SEE PT CHART.
--- NOTE | 2019-10-13 09:17 | NUR ---
MEDICATIONS ADMINISTERED PER ORDER. RESIDUAL CHECKED PRIOR TO ADMINISTRATION. NO RESIDUL FROM G TUBE NOTED. MEDICATIONS FLUSHED WITH 50ML OF H2O POST ADMIN. DR OTOOLE AT BEDSIDE. TUBE FEEDS INCREASED TO GOAL RATE AT 70 AT THIS TIME. ALL FALL PRECAUTIONS IN PLACE. BED IS IN THE LOWEST POSITION. CALL LIGHT AND BEDSIDE TABLE ARE WITHIN REACH. SIDE RAILS X 2. WILL CONT TO MONITOR.
[2019-10-13 12:24] VITALS: BP 130/84
--- NOTE | 2019-10-13 12:25 | NUR ---
RESIDUAL CHECKED PRIOR TO MEDICATION ADMINISTRATION. NO RESIDUAL SEEN AT THIS TIME. MEDICATIONS ADMINISTERED PER G TUBE WITH 20ML H2O AND FLUSHED WITH 50ML H2O PRIOR TO RESTARTING TF. PT HOB @ 45 DEGREES.
--- NOTE | 2019-10-13 14:16 | NUR ---
PT PULLING ON HIS PEG TUBE AND GASTRIC JUICE/TF LEAKING INTO PT BED. COMPLETE LINEN CHANGE. PT CLEANED. ABDOMINAL BINDER PLACED AND PEG TUBE COVERED AND OUT OF PT VIEW. FALL PRECAUTIONS IN PLACE. BED IS IN THE LOWEST POSITION. CALL LIGHT AND BEDSIDE TABLE ARE WITHIN REACH. SIDE RAILS X 2. WILL CONT TO MONITOR.
--- NOTE | 2019-10-13 15:00 | NUR ---
Nutrition follow-up: Osmolite 1.0 sourav infusing @ goal rate of 70 ml/hr with pt tolerating Labs reviewed RDN following.
[2019-10-13 15:51] VITALS: BP 142/86
--- NOTE | 2019-10-13 16:00 | NUR ---
PT WITH INCREASED AGGITATION PT REQUEST PAIN MEDICATION STATING PAIN 05/07. WILL ADDRESS. SEE EMAR.
--- NOTE | 2019-10-13 16:05 | NUR ---
OT NOTE: ATTEMPTED TO EVALUATE PT ON THIS DATE, HOWEVER, PT EXTREMELY CONFUSED. PT DISORIENTED X 4 AND SPEECH APPEARED GARBLED. UNABLE TO FOLLOW COMMANDS; PT WAS RESTLESS AND CONTINUALLY PULLING AT SHEETS AND GOWN. HOWEVER, ACCORDING TO NOTES, PT WAS PREVIOUSLY AMBULATORY AND LIVING FAIRLY INDEPENDENTLY. WILL RE ATTEMPT EVAL, HOWEVER, NOT APPROPRIATE AT THIS TIME DUE TO SEVERE CONFUSION. JESÚS XAVIER, OTR/L
--- NOTE | 2019-10-13 16:20 | NUR ---
PT WITH AUDIBLE EXPIRATORY CRACKLES. RESPIRATIONS ARE SHALLOW AND UNLOABRED. O2 VIA NC REPLACED. PT NONCOMPLIANT WITH O2 ADMINISTRATION AT THIS TIME. PT ENCOURAGED TO KEEP NC IN PLACE. PT STATES "I WILL". PT IS AAO X 2. PT CONFUSED TO PLACE AND SITUATION. PAGE PLACED TO LISA YANEZ APRN TO NOTIFY OF PT STATE. TELEPHONE ORDERS RECD ARE 40MG IV LASIX X 1 IF BP CAN TOLERATE. STAT CHEST XRAY. GET EKG AND NOTIFY OF RESULTS. WILL PLACE ORDERS AND WAIT FURTHER INSTRUCTIONS.
--- NOTE | 2019-10-13 16:54 | NUR ---
INFORMED LISA CHEW APRN OF [facility]. TELEPHONE ORDERS RECD ARE TO PAGE DR OTOOLE AND NOTIFY. PAGE PLACED TO DR OTOOLE.
--- NOTE | 2019-10-13 17:20 | NUR ---
PRESSER AND BLOCKER KNITTED GOODS PLACED. PT CONTINUES TO PULL AT PEG TUBE. ABD BINDER IN PLACE. NASAL CANNULA IS NOT IN PT NOSE. NC PLACED BACK IN PT NOSE. FALL PRECAUTIONS IN PLACE. BED IS IN THE LOWEST POSITION. CALL LIGHT AND BEDSIDE TABLE ARE WITHIN REACH. SIDE RAILS X 2. WILL CONT TO MONITOR.
[2019-10-13 20:00] VITALS: BP 87/42
--- NOTE | 2019-10-13 22:00 | NUR ---
sierra care provided. pt reports pain to abdomen. nc reapplied and pt informed to keep oxygen in nose. pt verbalized understanding. wet cough noted, but pt states non productive. will continue to monitor.
--- NOTE | 2019-10-13 23:33 | NUR ---
I have reviewed this patient and I concur with the Shift Assessment completed by the Licensed Practical Nurse today this shift.
[2019-10-14] VITALS: BP 132/93
[2019-10-14 04:00] VITALS: BP 125/71
[2019-10-14 06:04] LABS: CALC OSMOLALITY 271 mosm/kg (275-300); CALCIUM 7.8 mg/dL (8.5-10.1); CARBON DIOXIDE 26.9 mmol/L (21.0-32.0); CHLORIDE - SERUM 98 mmol/L (98-107); CREATININE - SERUM 0.9 mg/dL (0.6-1.3); GLUCOSE 137 mg/dL (74-106); MAGNESIUM - SERUM 2.1 mg/dL (1.8-2.4); POTASSIUM - SERUM 4.7 mmol/L (3.5-5.1); SODIUM 131 mmol/L (136-145); UREA NITROGEN 32 mg/dL (7-18); eGFR NON AFRICAN AMERICAN 85 mL/min (90-120)
--- NOTE | 2019-10-14 07:32 | NUR ---
BEDSIDE REPORT RECD. PT AT SURGERY. WILL CONDUCT ASSESSMENT UPON PT ARRIVAL TO FLOOR.
[2019-10-14 07:49] LABS: BASOPHILS 0.1 % (0-2); EOSINOPHILS 0.1 % (0-7); HEMATOCRIT 33.2 % (42.0-54.0); HEMOGLOBIN 10.5 g/dL (13.5-17.5); IMMATURE GRANULOCYTES 0.4 % (0-5); LYMPHOCYTES 3.6 % (15-50); MCH 30.6 pg (26.0-34.0); MCHC 31.6 g/dL (31.0-37.0); MEAN PLATELET VOLUME 9.7 fL (7.4-10.4); MONOCYTES 10.5 % (2-11); NEUTROPHILS 85.3 % (40-80); PLATELET COUNT 328 10x3/uL (130-400); RBC 3.43 10x6/uL (4.20-6.10); RDW 14.6 % (11.5-14.5); WBC 17.2 10x3/uL (4.8-10.8)
[2019-10-14 07:50] LABS: MCV 96.8 fL (80.0-100.0)
--- NOTE | 2019-10-14 08:00 | NUR ---
PT RESTING IN BED WITH AGGITATION CONFUSED TO PLACE/SITUATION. ORIENTED TO SELF ONLY AT THIS TIME BUT IS FOLLOWING SIMPLE COMMANDS. O2 VIA NC NOT IN PLACE. RESPIRATORY AT BEDSIDE TO ASSIST IN PLACING VENTI MASK ON PT @8L. O2 SAT BROUGHT UP TO 99% AT THIS TIME. O2 SAT PRIOR TO VENIT MASK AT 88%. BILATERAL LUNG SOUNDS ARE CRACKLES RALES EXPIRATORY. HEART RATE IS TACHY @ 112. RESPIRATIONS ARE 28/MINUTE. LISA CHEW APRN NOTIFIED OF PT STATE TELEPHONE ORDERS RECD ARE 20MG IV LASIX X 1 NOW. CHEST XRAY STAT. IF BP STABLE GIVE ANOTHER 20MG IV LASIX IN [address] ORDERS AND MONITOR PT CLOSELY.
--- NOTE | 2019-10-14 08:50 | NUR ---
IR CALLED. TELEPHONE ORDERS RECD ARE STOP TUBE FEEDS AND HOLD ASA AT THIS TIME.
[2019-10-14 08:54] VITALS: BP 141/67
--- NOTE | 2019-10-14 12:19 | NUR ---
1100-SPOKE WITH VIA PHONE. NEW ORDER REC'D TO CANCEL TODAY'S IR PROCEDURE. DR. MADERA WILL REFER TO DR. HENSLEY FOR FURTHER ORDERS.
[2019-10-14 12:32] VITALS: BP 133/79
--- NOTE | 2019-10-14 14:16 | NUR ---
OT NOTE: PT COMPLETED BED MOB TASKS WITH TOTAL A. PT COMPLETED FACE WASH WITH MOD A. PT IS CONFUSED. [phone] THANK YOU,GERA MIX
--- NOTE | 2019-10-14 15:51 | OP ---
PATIENT NAME: SHE CAPMBELL MEDICAL RECORD: [id number] :33 LOCATION:[facility] ADMISSION DATE:10/06/19 SURGEON: SHAQUILLE SPENCE MD DATE OF OPERATION: 10/07/2019 PREOPERATIVE DIAGNOSIS/HISTORY: Mr. Campbell is an 84-year-old male with dysphagia, radiology report suggested a laryngeal mass. POSTOPERATIVE DIAGNOSIS: Dysphagia. PROCEDURE: Direct laryngoscopy, rigid esophagoscopy. SURGEON: Shaquille Spence MD ANESTHESIA: General orotracheal. BLOOD LOSS: None. SPECIMENS: None. COMPLICATIONS: None. FINDINGS: Normal hypopharyngeal laryngeal exam, normal cervical esophagus. PROCEDURE NOTE: He was brought to the operating room and placed in supine position, sedated by anesthesia. He was edentulous. He was positioned for laryngoscopy. Plastic upper tooth guard was used to protect the upper gums. Using a headlight, the oral cavity and pharynx were examined. Base of tongue was palpated as was the tonsil fossae, everything looked completely unremarkable and normal. Kleinsasser J laryngoscope was inserted and used to evaluate the posterior pharyngeal wall, lateral pharyngeal ulloa, vallecula, base of tongue, epiglottis, both piriforms, the cords, post-glottic area. This was before he was intubated. All completely normal exam. Laryngeal surface of the epiglottis all normal. Wide open trachea, can see subglottis and more than half the trachea perfectly normal. No inflammation, no masses, no swelling, no extrinsic compression, everything looked completely normal. Laryngoscope was removed and then he was intubated by anesthesia. A 6-1/2 tube, 30 cm cervical esophagoscope was inserted. He had a little bit of an osteophyte, little bit of a shelf near the level of the cricoid to go over and follow the esophagus down. The esophagus was all the way until the 30 mm scope was hubbed-out at the alveolar ridge, completely normal esophagus, very little bit of reflux was suctioned out at the bottom there, but as I backed out all and mucosa with a perfectly normal very easy to scope. At that point, he was left intubated. A plastic tooth guard was removed and Dr. Christianson was going to proceed with a PEG. TRANSINT:[id number] Voice Confirmation ID: [id number] DOCUMENT ID: [id number] OPERATIVE REPORT [id number] SHE CAMPBELL ERIC MD at 1551 CC: [id number] DICTATION DATE: 10/07/19 1331 MACHINE CLERICAL VERIFIER: 10/07/19 1623 ADM IN [id number] [place] [address]
[2019-10-14 16:44] VITALS: BP 142/75
--- NOTE | 2019-10-14 20:00 | NUR ---
ALERT RESTING IN BED CONFUSED, PULLING AT O2 MASK, IV RESITED TO RIGHT FOREARM X 2 ATTEMPTS 22G, SEE SHIFT ASSESSMENT, FALL PRECAUTIONS IN PLACE CALL LIGHT IN REACH
[2019-10-14 20:43] VITALS: BP 130/66
[2019-10-15] VITALS (12 sets, daily range): BP systolic 85–143; BP diastolic 51–81
[2019-10-15 06:31] LABS: ANION GAP 12.7 mmol/L (8-16); CALCIUM 7.9 mg/dL (8.5-10.1); MAGNESIUM - SERUM 1.9 mg/dL (1.8-2.4)
[2019-10-15 06:32] LABS: CREATININE - SERUM 1.2 mg/dL (0.6-1.3); POTASSIUM - SERUM 3.7 mmol/L (3.5-5.1)
[2019-10-15 06:47] LABS: BASOPHILS 0 % (0-2); EOSINOPHILS 0.1 % (0-7); HEMATOCRIT 31.4 % (42.0-54.0); HEMOGLOBIN 10.3 g/dL (13.5-17.5); IMMATURE GRANULOCYTES 0.4 % (0-5); LYMPHOCYTES 4.5 % (15-50); MCH 31.1 pg (26.0-34.0); MCHC 32.8 g/dL (31.0-37.0); MCV 94.9 fL (80.0-100.0); MEAN PLATELET VOLUME 9.7 fL (7.4-10.4); MONOCYTES 10.5 % (2-11); NEUTROPHILS 84.5 % (40-80); PLATELET COUNT 325 10x3/uL (130-400); RBC 3.31 10x6/uL (4.20-6.10); RDW 14.5 % (11.5-14.5); WBC 17.2 10x3/uL (4.8-10.8)
--- NOTE | 2019-10-15 07:45 | NUR ---
PATIENT BED ALARM GOING OFF. PATIENT TRYING TO CLIMB OUT OF BED AT BOTTOM OF RIGHT SIDE OF BED. O2 VENTI MASK OFF AND IN PIECES. HAD TO FIX. BED ALARM BACK ON. CL IN REACH. NO FURTHER NEEDS AT THIS TIME.
--- NOTE | 2019-10-15 08:49 | NUR ---
PATIENT FOUND TRYING TO CLIMB OUT OF BED ON LEFT SIDE OF BED. STATES HE NEEDS TO GO TO THE BATHROOM. VENTI MASK ON AT THIS TIME O2 TUBING STRETCHED TO MAX. LAYS BACK DOWN WITH GENTLE COAXING. CL IN REACH. WCTM
--- NOTE | 2019-10-15 10:59 | NUR ---
TUBE FEEDING RESTARTED AT [address] OTOOLE. O2 PLACED BACK ON PATIENT. HOB AT 50 DEGREES[address] CL IN REACH. BED ALARM ON
--- NOTE | 2019-10-15 11:07 | NUR ---
Nutrition follow-up: TF has been off due to fluid overload TF reordered to begin today @ 40 ml/hr with gradual increase to goal rate of 70 ml/hr; also 25 ml H2O flush q hour. Labs reviewed RDN following.
--- NOTE | 2019-10-15 12:54 | NUR ---
OT NOTE: PT REMAINS CONFUSED; O2 REPLACED UPON ENTERING ROOM; PT PULLING AT PEG TUBE CATHETER, ETC. BED MOB WITH MIN ASSIST TO INCLUDE ROLLING SIDE TO SIDE; MOD ASSIST FOR SUPINE TO SIT. REPLACED PADS IN BED. DUE TO CONFUSION, PT UNSAFE TO SIT UP IN CHAIR. UNABLE TO PERFORM ADLS UPON REQUEST. REPOSITIONED IN BED ON SIDE WITH PILLOW BETWEEN KNEES AND HEAD ELEVATED. JESÚS XAVIER, OTR/L [id number]
--- NOTE | 2019-10-15 14:04 | NUR ---
PATIENT LAYING ON RIGHT SIDE. O2 VENTI MASK PLACED BACK ON PATIENT. CL IN REACH. NO FURTHER NEEDS AT THIS TIME. WCTM
--- NOTE | 2019-10-15 14:51 | NUR ---
OT NOTE: PT COMPLETED BED MOB TASKS WITH MIN/CGA. PT COMPLETED POSITIONING WITH CGA. PT COMPLETED LB HYGIENE WITH MAX A. [phone] THANK YOU,GERA MIX
--- NOTE | 2019-10-15 14:57 | NUR ---
PATIENT SLEEPING ON RIGHT SIDE. O2 VENTI MASK STILL ON. TELEMETRY 81 SR. CL IN REACH. WCTM
--- NOTE | 2019-10-15 15:58 | NUR ---
CALLED DR HENSLEY TO INFORM HIM OF PT RESP AT 28. THAT PT WOULD NOT TOLERATE ANOTHER DOSE OF IV LASIX. THAT HE KEEPS PULLING THE VENTI MASK OFF. STATED HE WOULD COME BY AND SEE HIM.
--- NOTE | 2019-10-15 16:09 | NUR ---
VENTI MASK OFF OF PATIENT WHEN I WENT IN ROOM DESAT TO 90. VENTI REAPPLIED JUMPED UP TO 95. CL IN REACH. WCTM
--- NOTE | 2019-10-15 17:14 | NUR ---
SPOKE WITH NEPHEW YEVGENIY DUGGAN ABOUT MOVING HIS UNCLE TO ICU ROOM 2305. TOLD HIM WE JUST NEEDED TO BE ABLE TO KEEP BETTER EYES ON HIM WITH HIM PULLING OFF THE O2. YEVGENIY REPLIED HE "ARTURO THOUGHT THAT YESTERDAY."
--- NOTE | 2019-10-15 17:55 | NUR ---
1738 ARRIVED TO R00M 2306 FROM M/S UNIT BEDSIDE REPORT FROM MARCELLE IV 22 GAUGE TO RIGHT FOREARM WITH D5NS INFUSING AT 10ML/HOUR SITE SATISFACTORY O2 ON PER VENTI MASK AT 8 LITERS DELIVERING 40% SR 85 OSMOLYTE 1.2 TO PEG TUBE AT 70ML/HR LUNGS WITH RALES AND RHONCHI NOTED
--- NOTE | 2019-10-15 19:00 | NUR ---
REPORT REC'D. ASSESSMENT COMPLETED PER FLOWSHEETS. PT AROUSES WTIH VOICES, ALERT AND ORIENTED TO NAME. REORIENTED TO TIME, PLACE AND SITUATION. SR ON CM WITH HR AT 85. PT PULLED OFF VENTIMASK, READJUSTED AND ENCOUREGED TO KEEP THE MASK ON, NODDED HEAD FOR UNDERSTANDING. O2SAT 95% ON 8L VIA VENTI MASK. ABD BINDER PRESENT FOR PEG-TUBE. CONT TF PER ORDER. PPP. CALL LIGHT IN REACH. CONT TO MONITOR.
--- NOTE | 2019-10-15 23:00 | NUR ---
REASSESSMENT COMPLETED PER FLOWSHEETS. PT AROUSES EASILY WITH VOICES. NO ACUTE SIGNS OF DISTRESS AT THIS TIME. VSS. CPOC.
[2019-10-16] VITALS (24 sets, daily range): BP systolic 92–128; BP diastolic 49–77
[2019-10-16 03:16] LABS: BASOPHILS 0.1 % (0-2); EOSINOPHILS 0.5 % (0-7); HEMATOCRIT 28.9 % (42.0-54.0); HEMOGLOBIN 9.4 g/dL (13.5-17.5); IMMATURE GRANULOCYTES 0.5 % (0-5); LYMPHOCYTES 6.8 % (15-50); MCH 31.2 pg (26.0-34.0); MCHC 32.5 g/dL (31.0-37.0); MEAN PLATELET VOLUME 9.6 fL (7.4-10.4); MONOCYTES 10.5 % (2-11); NEUTROPHILS 81.6 % (40-80); PLATELET COUNT 345 10x3/uL (130-400); RBC 3.01 10x6/uL (4.20-6.10); RDW 14.9 % (11.5-14.5); WBC 14.6 10x3/uL (4.8-10.8)
[2019-10-16 03:33] LABS: ALBUMIN 1.8 g/dL (3.4-5.0); ANION GAP 9.8 mmol/L (8-16); BILIRUBIN - TOTAL 0.5 mg/dL (0.2-1.3); CALCIUM 7.4 mg/dL (8.5-10.1); CARBON DIOXIDE 32.4 mmol/L (21.0-32.0); CREATININE - SERUM 1.3 mg/dL (0.6-1.3); MAGNESIUM - SERUM 2.1 mg/dL (1.8-2.4); PHOSPHOROUS 2.5 mg/dL (2.5-4.9); POTASSIUM - SERUM 3.2 mmol/L (3.5-5.1); PROTEIN - SERUM 5.4 g/dL (6.4-8.2)
--- NOTE | 2019-10-16 05:30 | NUR ---
PT C/O PAIN ALL OVER 10/10 SCALE, TRAMADOL 50MG GIVEN VIA PEG TUBE PER ODER. CPOC.
--- NOTE | 2019-10-16 06:29 | NUR ---
K LEVEL 3.2, POTASSIUM COVERED PER ELECTROLYTE PROTOCOL,40MEG GIVEN PER PEG-TUBE. CPOC.
--- NOTE | 2019-10-16 08:48 | EC ---
PATIENT:SHE MULTANI DATE OF SERVICE: 10/06/19 SEX: M MEDICAL RECORD: [id number] DATE OF : 31 LOCATION:[facility] D230 AGE OF PATIENT: 84 ADMISSION DATE: 10/06/19 REFERRING PHYSICIAN: INTERPRETING PHYSICIAN: FIDELIA OLIVIER MD ECHOCARDIOGRAM REPORT ECHO CHARGES 4 ECHO COMPLETE Date: 10/14/19 CLINICAL DIAGNOSIS: ARRHYTHMIA ECHOCARDIOGRAPHIC MEASUREMENTS (adult normal given) AC root (d.<3.7cm) 3.5 cm LV Septum d (<1.2 cm> 1.0 cm Valve Excursion 2.3 cm LV Septum (systole) 1.2 cm Left Atria (s.<4.0cm> 3.8 cm LVPW d(<1.2cm) 1.3 cm RV (d.<2.3cm) 4.5 cm LVPW (sytole) 1.4 cm LV diastole(<5.6CM) 4.8 cm MV E-F(>70mm/sec) cm LV systole 3.1 cm LVOT Diameter 2.0 cm MV exc.(>10mm) cm Est.ejection fraction (50-75%) % DOPPLER: LVIT cm/sec A 52.0 cm/sec E 59.0 cm/sec LA cm/sec RVSP 51 mmHg LVOT 61 cm/sec AOP1/2T m/s Asc. Ao 97 cm/sec RVOT 46 cm/sec RA cm/sec PA 69 cm/sec AV Gradient Peak 3.79 mmHg AV Mean 2.03 mmHg AV Area 2.1 cm MV Gradient Peak 4.59 mmHg MV Mean 1.64 mmHg MV Area cm COMMENTS: Pig Machine Operator: 2 PENNY DISLA Rn Anesthesiology: 3 Dr. Lemon TAPE# PACS Pericardial Effusion N DATE OF SERVICE: Adequate 2D, color flow imaging, spectral Doppler, and M-Mode No LVH. LV internal dimensions are normal. LV appears to be mildly globally hypo with reduced EF, estimated EF 40% to 45%. Aortic valve sclerosis without stenosis by Doppler interrogation. Left atrium is normal at 3.8 cm. Mitral valve shows no prolapse. Mild MR. Right-sided chambers grossly normal. [id number] TR. ECHOCARDIOGRAM REPORT [id number] SHE MULTANI TRANSINT:[id number] Voice Confirmation ID: [id number] DOCUMENT ID: [id number] FIDELIA OLIVIER MD at 0848 CC: [id number] DICTATION DATE: 10/15/19 1451 CHURN DRILL OPERATOR: 10/15/19 1616 ADM IN [facility] [address] [id number]
--- NOTE | 2019-10-16 09:39 | NUR ---
Nutrition follow-up: Pt now in ICU 08/30 will not leave O2 in place. Pt awake; did not speak with RDN PEG tube with Osmolite infusing @ goal rate of 70 ml/hr with 100 ml H2O q 4 hrs Wt: 120# Pt tolerating TF at goal rate RDN following.
--- NOTE | 2019-10-16 16:56 | NUR ---
PT HAD LG BM. CLEANED AND LINENS CHANGED.
--- NOTE | 2019-10-16 18:16 | NUR ---
PT C/O PAIN TO ABD PEG SITE. TRAMADOL GIVEN.
--- NOTE | 2019-10-16 19:00 | NUR ---
RECIEVED REPORT AT BEDSIDE. PT IS RESTING IN BED WITHE EYES CLOSED. AWAKES EASILY WHEN CALL HIS NAME. VSS. HE IS A&OX2. VOICES"IS IT TIME FOR MY PAIN PILL, I HURT ALL OVER". RECIEVED IN REPORT THAT MARY CLINTON JUST GAVE HIM HIS PAIN PILL ABOUT 20 MINUTES AGO. LET PT KNOW THIS AND HE VOICED"OK, THANK YOU". I ASKED HIM IF HE HURTS ALL OVER ALL THE TIME. HE VOICED"YEA ARTURO". WILL PERFORM FULL ASSESSMENT AND DOCUMENT. HENRY OBSERVED HANGING BELOW BLADDER ON BED. BED IS LOW,SIDE RAILSX2,CALL LIGHT WITHIN REACH. WILL CONITNUE TO MONITOR
--- NOTE | 2019-10-16 20:54 | NUR ---
PT IS RESTING IN BED WITH EYES CLOSED. OPENS EYES WHEN CALLED NAME. NO NEEDS OR COMPLAINTS VOICED. VSS. PULLED BACK TO CHECK RESIDUAL OF PEG TUBE. LESS THAN 5ML PULLED BACK. ADMINSITERED MEDS PER PEG TUBE. AND FLUSHED WITH 15ML OF WARM WATER. PT TOELRATED WELL. BED IS LOW,SIDE RAILSX2,CALL LGIHT WITHIN REACH. ANGELA PLASCENCIA TO MONITOR
--- NOTE | 2019-10-16 23:09 | NUR ---
WENT TO CHECK ON PT TO PERFORM RE-ASSESSMENT AND PT VOICES"CAN I HAVE SOME PAIN MEDICINE I HURT ALL OVER". I INFORMED PT THAT HE HAS ALREADY HAD PAIN MEDICINE AND THAT DUE TO THE ORDER HE CAN NOT HAVE AGAIN FOR ALEAST ANOTHER 4 HOURS. PT SIGHED AND ASKED"CAN I GET SOMETHING ELSE PLEASE". I TOLD HIM I WILL CALL THE DOCTOR AND ASK. HE VOICES HIS PAIN "8/10" NUMEREIC SCALE "ALL OVER MY BODY, IM JUST ACHY, CAN I PLEASE GET SOMETHING FOR DAM PAIN". VSS. TEMP IS 97.8F. I ASKED PT IF HE IS COLD AND HE VOICED"NO IM COMFY". I WILL PAGE AT THIS TIME. BED IS LOW,SIDE RAILSX2,CALL LIGHT ASHKAN PADRON. WILL CONINTUE TO MONITOR
--- NOTE | 2019-10-16 23:45 | NUR ---
SACHIN MOSHER IS HERE AT THIS TIME. I NOTIFY HIM OF PT CONSTANT PAIN"ALL OVER". HE CHANGES TRAMADOL ORDERS TO Q8H PRN IN STEAD OF BID PRN.
[2019-10-17] VITALS (16 sets, daily range): BP systolic 110–133; BP diastolic 56–99
--- NOTE | 2019-10-17 00:15 | NUR ---
CALLED GLASS SANDER BELT TO INFORM HER THAT I NEED HER TO OVERRIDE THE NEW ORDER OF TORADOL FOR PT THAT HAS BEEN CHANGED BY DANIELLA STEPHENSON. SHE VOICED "ILL BE THERE SHORTLY IM DOING ROUNDS". I INFORMED THE PT THAT I AM WAITING, BUT SOON SHE GETS HERE I WILL BRING HIM A PAIN PILL. HE VOICED "OK, THANK YOU". VSS. BED IS LOW,SIDE RAILSX2,CALL LIGHT WITHINR EACH. WILL CONINTUE TO MONITOR
--- NOTE | 2019-10-17 02:51 | NUR ---
PT IS RESTING IN BED WITH EYES CLOSED. WAKES WHEN CALLED NAME. ADMINSTERED MEDS PER ORDER AND CHANGED OUT ALL IV LINES AND CHANGED TUBE FEEDING SYSTEM WELL. WILL PERFORM RE-ASSESSMENT AND DOCUMENT. VSS. BED IS LOW,SIDE RAILSX2, CALL LIGHT WITHIN REACH. WILL CONTINUE TO MONITOR
[2019-10-17 04:02] LABS: BASOPHILS 0 % (0-2); EOSINOPHILS 2.8 % (0-7); HEMATOCRIT 32.2 % (42.0-54.0); IMMATURE GRANULOCYTES 0.5 % (0-5); LYMPHOCYTES 6.8 % (15-50); MCH 30.6 pg (26.0-34.0); MCHC 31.1 g/dL (31.0-37.0); MEAN PLATELET VOLUME 9.4 fL (7.4-10.4); MONOCYTES 8.7 % (2-11); NEUTROPHILS 81.2 % (40-80); RBC 3.27 10x6/uL (4.20-6.10); RDW 15.1 % (11.5-14.5); WBC 12.8 10x3/uL (4.8-10.8)
[2019-10-17 04:04] LABS: MCV 98.5 fL (80.0-100.0); PLATELET COUNT 275 10x3/uL (130-400)
[2019-10-17 04:15] LABS: ALBUMIN 1.8 g/dL (3.4-5.0); ANION GAP 8.7 mmol/L (8-16); BILIRUBIN - TOTAL 0.45 mg/dL (0.2-1.3); CALCIUM 7.2 mg/dL (8.5-10.1); CARBON DIOXIDE 32.1 mmol/L (21.0-32.0); CREATININE - SERUM 1.3 mg/dL (0.6-1.3); MAGNESIUM - SERUM 1.9 mg/dL (1.8-2.4); PHOSPHOROUS 2.3 mg/dL (2.5-4.9); POTASSIUM - SERUM 3.8 mmol/L (3.5-5.1); PROTEIN - SERUM 5.6 g/dL (6.4-8.2)
--- NOTE | 2019-10-17 04:31 | NUR ---
PT IS RESTING IN BED WATCHING TV. VSS. PHOSPHORUS LAB IS LOW, SO GIVNING 1 PKT OF PHOS-NaK AT THIS TIME PER PROTOCOL THROUGH PEG TUBE. FLUSHED WITH 15ML OF WATER. PT VOICES NO NEEDS OR CONCERNS AT THIS TIME. BED IS LOW,SIDE [id number] LIGHT WITHIN REACH. WILL CONTINUE TO MONITOR
--- NOTE | 2019-10-17 05:33 | NUR ---
PT C/O OF PAIN ON HIS RIGHT LOWER SIDE OF ABD. WHEN ASSESSING PT PUTS HIS RIGHT HAND ON AREA THAT IT HURTS AND WHEN PALPATED THERE IS A DISTENDED BUT SPONGY MASS FELT. WHEN ASSESSING THE OTHER SIDE, THIS IS SPECIFICALLY DIFFERENT. PT HAD NOT C/O OF THIS SPECIFIC PAIN OF BEFORE. BSX4 ARE PRESANT THE REST OF THE ABD IS NOT DISTENDED. WHEN I PUSH ON THE DISTENDED AREA THE PT YELLS OUT IN PAIN"OOO THAT HURTS". VSS AT THIS TIME. I WILL CONTINUE TO MONITOR THIS. BED IS LOW,SIDE RAISLX2,CALL LIGHT WITHIN REACH WILL CONTINUE TO MONITOR
--- NOTE | 2019-10-17 06:42 | NUR ---
PT IS RESTGIN IN BED WITH EYES CLOSED. VSS. NO NEEDS VOICED. BED IS LOW,SIDE RAISLX2,CALL LIGHT WITHIN REACH. WILL CONTINUE TO MONITOR
--- NOTE | 2019-10-17 07:00 | NUR ---
BEDSIDE REPORT RECEIVED. SHIFT ASSESSMENT COMPLETED PER FLOWSHEET, SEE FLOWSHEET FOR INFORMATION. NO ACUTE NEEDS OR DISTRESS NOTED AT THIS TIME. VSS. WILL CONT TO MONITOR.
--- NOTE | 2019-10-17 09:00 | NUR ---
0900 MEDICATIONS GIVEN. FAMILY AT BEDSIDE, UPDATE GIVEN. WILL CONT TO MONITOR.
--- NOTE | 2019-10-17 11:00 | NUR ---
AT BEDSIDE. NO NEW ORDERS AT THIS TIME. REASSESSMENT COMPLETED PER FLOWSHEET, SEE FLOWSHEET FOR INFORMATION. NO ACUTE NEEDS OR DISTRESS NOTED AT THIS TIME. VSS. WILL CONT TO MONITOR.
--- NOTE | 2019-10-17 13:00 | NUR ---
CHG BEDBATH GIVEN, COMPLETE LINEN CHANGE COMPLETED. WILL CONT TO MONITOR.
--- NOTE | 2019-10-17 13:54 | NUR ---
REPORT CALLED TO HALINA CLINTON AT [facility] 2. TRANSFERED PT TO ROOM 2119 VIA BED ACCOMPANIED BY ICU STAFF AND PT WHEELCHAIR AND PROPERTY UN PERSONAL BELONGINGS BAG SENT WITH HIM. NO ACUTE NEEDS OR DISTRESS NOTED AT THIS TIME. VSS. WILL CONT TO MONITOR.
--- NOTE | 2019-10-17 14:51 | NUR ---
NEW PATIENT TRANSFER FROM ICU. PATIENT LAYING IN BED ON BACK HOB ELEVATED 35 DEGREES. PATIENT IS AWAKE, ALERT, PLEASANT AND WITH SOME CONFUSION. VSS. DUBUTAMINE DRIP GOING AT 2.5, NS KVO AT 30 AND OSMOLITE FEEDING AT 60. AEESSMENT COMPLETED . ORIENTED PATIENT TO ROOM AND CALL LIGHT. PATIENT DENIES ANY NEEDS OR PAIN. WILL CONTINUE WITH PLAN OF CARE.
--- NOTE | 2019-10-17 18:00 | NUR ---
PATIENT LAYING IN BED ON BACK WITH HOB ELEVATED 30 DEGREES WITH EYES CLOSED AND BREATHING EVENLY. PATIENT IS STABLE AND VSS. WILL CONTINUE WITH PLAN OF CARE. SR UP X 2 BED IN LOW POSITION AND CALL LIGHT IN REACH.
--- NOTE | 2019-10-17 19:33 | NUR ---
RECEIVED REPORT, WILL ASSUME CARE OF PT, SLEEPING NO DISTRESS NOTICE AT THIS TIME, BED IS LOW, SRX2, CALL LIGHT IN REACH, WILL CONTINUE PLAN OF CARE
--- NOTE | 2019-10-18 02:03 | NUR ---
CHANGED TUBE FEEDING
[2019-10-18 04:00] VITALS: BP 127/61
[2019-10-18 05:30] LABS: BASOPHILS 0 % (0-2); EOSINOPHILS 0.5 % (0-7); HEMATOCRIT 30.7 % (42.0-54.0); HEMOGLOBIN 9.5 g/dL (13.5-17.5); IMMATURE GRANULOCYTES 0.4 % (0-5); LYMPHOCYTES 5.1 % (15-50); MCH 30.6 pg (26.0-34.0); MCHC 30.9 g/dL (31.0-37.0); MEAN PLATELET VOLUME 9.5 fL (7.4-10.4); MONOCYTES 7.3 % (2-11); NEUTROPHILS 86.7 % (40-80); PLATELET COUNT 234 10x3/uL (130-400); RDW 15.4 % (11.5-14.5)
--- NOTE | 2019-10-18 05:36 | NUR ---
I have reviewed this patient and I concur with the Shift Assessment completed by the Licensed Practical Nurse today this shift.
[2019-10-18 05:45] LABS: ALBUMIN 1.7 g/dL (3.4-5.0); ANION GAP 8.4 mmol/L (8-16); BILIRUBIN - TOTAL 0.47 mg/dL (0.2-1.3); CALCIUM 7.5 mg/dL (8.5-10.1); CARBON DIOXIDE 33.3 mmol/L (21.0-32.0); CREATININE - SERUM 1.3 mg/dL (0.6-1.3); POTASSIUM - SERUM 3.7 mmol/L (3.5-5.1); PROTEIN - SERUM 5.7 g/dL (6.4-8.2)
[2019-10-18 08:23] VITALS: BP 122/56
--- NOTE | 2019-10-18 08:27 | NUR ---
AM MEDS GIVEN AT THIS TIME. ALSO GAVE ULTRAM FOR PAIN LEVEL OF 8/10. PT RESTING COMFORTABLY IN BED, A/O X2, RESP EVEN AND NONLABORED ON RA. HENRY DRAINING YELLOW URINE TO GRAVITY. PT DENIES ANY OTHER NEEDS AT THIS TIME. CALL LIGHT IN REACH,NAD NOTED, WILL CONTINUE TO MONITOR.
[2019-10-18 12:19] VITALS: BP 114/57
[2019-10-18 16:33] VITALS: BP 124/59
--- NOTE | 2019-10-18 19:45 | NUR ---
REPORT RECIEVED AND INITIAL ROUNDS COMPLETED. PT RESTING IN BED. PEG TUBE WITH OSMOLYTE AT 70ML/HR INFUSING. CHANDRA WITH D5NS @ KVO AND DOBUTAMINE AT 2.5MCG/KG/MIN (4.2ML/HR) HENRY PATENT TO BEDSIDE DRAIN BAG. SR PER TELEMETRY. FALL PRECAUTIONS. CONFUSED/DISORIENTED. SR UP X 3.
[2019-10-18 20:00] VITALS: BP 122/58
[2019-10-19] VITALS: BP 117/50
--- NOTE | 2019-10-19 02:41 | NUR ---
AWAKE, PERIODS OF CONFUSION AND DISORIENTATION. OSMOLITE INFUSING TO PEG TUBE. HENRY PATENT TO BEDSIDE DRAIN BAG. CLEAN/DRY.
[2019-10-19 04:00] VITALS: BP 120/60
[2019-10-19 06:16] LABS: BASOPHILS 0.1 % (0-2); EOSINOPHILS 0.9 % (0-7); HEMATOCRIT 30.7 % (42.0-54.0); HEMOGLOBIN 9.7 g/dL (13.5-17.5); IMMATURE GRANULOCYTES 0.4 % (0-5); LYMPHOCYTES 7.1 % (15-50); MCH 31.4 pg (26.0-34.0); MCHC 31.6 g/dL (31.0-37.0); MCV 99.4 fL (80.0-100.0); MEAN PLATELET VOLUME 10.1 fL (7.4-10.4); NEUTROPHILS 86.5 % (40-80); PLATELET COUNT 234 10x3/uL (130-400); RBC 3.09 10x6/uL (4.20-6.10); RDW 15.7 % (11.5-14.5); WBC 15.9 10x3/uL (4.8-10.8)
[2019-10-19 06:31] LABS: ANION GAP 11.7 mmol/L (8-16); BILIRUBIN - TOTAL 0.51 mg/dL (0.2-1.3); CALCIUM 7.7 mg/dL (8.5-10.1); CARBON DIOXIDE 32.7 mmol/L (21.0-32.0); CREATININE - SERUM 1.2 mg/dL (0.6-1.3); MAGNESIUM - SERUM 2.1 mg/dL (1.8-2.4); PHOSPHOROUS 2.8 mg/dL (2.5-4.9); POTASSIUM - SERUM 3.4 mmol/L (3.5-5.1); PROTEIN - SERUM 6.5 g/dL (6.4-8.2)
[2019-10-19 06:33] LABS: ALBUMIN 2.3 g/dL (3.4-5.0)
[2019-10-19 08:40] VITALS: BP 87/60
--- NOTE | 2019-10-19 10:49 | NUR ---
Nutrition Follow-up: Nursing reports pt tolerating TF at goal rate. Diet: Osmolite 1.0 @ 70 Wt: 122.3# (10/16); 120# (10/15) Last BM: 10/17 per chart Labs noted: K+ 3.4, Glu 111, Ca 7.7, Alb 2.3 Meds noted: Lactulose, Protonix, Lasix, Reglan, D5NS @ KVO -Continue current TF as tolerated. -Need new wt; noted daily wts ordered. -RD following.
[2019-10-19 11:54] VITALS: BP 119/58
[2019-10-19 17:09] VITALS: BP 119/53
[2019-10-19 20:00] VITALS: BP 104/49
--- NOTE | 2019-10-19 21:17 | NUR ---
EVENING ROUNDS COMPLETED. PT ALERT, BUT CONFUSED. NO AFVSS. PT RESTING COMFORTABLY IN BED. PEG TUBE INTACT, OSMOLITE INFUSING @70. HENRY INTACT, REPLACED STAT LOCK. PM MEDS GIVEN VIA PEG TUBE. FLUSHED WITH 25CCS. PT DENIES ANY FURTHER NEEDS AT THIS TIME. WILL CPOC. CL WITHIN REACH, BED IN LOW, SR UP X2. ALARM ON.
[2019-10-20] VITALS: BP 116/46
[2019-10-20 04:00] VITALS: BP 112/47
[2019-10-20 05:07] LABS: HEMATOCRIT 28.4 % (42.0-54.0); HEMOGLOBIN 8.7 g/dL (13.5-17.5); MCH 30.3 pg (26.0-34.0); MCHC 30.6 g/dL (31.0-37.0); MEAN PLATELET VOLUME 9.2 fL (7.4-10.4); NEUTROPHILS 87.2 % (40-80); PLATELET COUNT 212 10x3/uL (130-400); RBC 2.87 10x6/uL (4.20-6.10); RDW 16.6 % (11.5-14.5); WBC 12.4 10x3/uL (4.8-10.8)
[2019-10-20 05:27] LABS: BILIRUBIN - TOTAL 0.49 mg/dL (0.2-1.3); CALCIUM 7.3 mg/dL (8.5-10.1); CARBON DIOXIDE 31.9 mmol/L (21.0-32.0); CREATININE - SERUM 1.2 mg/dL (0.6-1.3); POTASSIUM - SERUM 3.9 mmol/L (3.5-5.1); PROTEIN - SERUM 6.1 g/dL (6.4-8.2)
[2019-10-20 08:42] VITALS: BP 118/61
--- NOTE | 2019-10-20 12:26 | NUR ---
Nutrition Follow-up: Tolerating TF at goal rate. Per Dr. Hillman, add additional protein to TF. Noted I/Os (-790 mL yesterday per chart). Diet: Osmolite 1.0 @ 70; 25 mL H2O q hr Wt: 117.9# (10/19); 122.3# (10/16); 120# (admit) Labs noted: Ca 7.3, Alb 2.0 Meds noted: Lactulose, Protonix, Lasix, Reglan -Proteinex added - 30 mL BID (provides 120 kcal and 30 g protein daily). -Monitor wt. -RD following.
[2019-10-20 14:36] LABS: BILIRUBIN NEGATIVE (NEGATIVE); GLUCOSE NEGATIVE (NEGATIVE); KETONE NEGATIVE (NEGATIVE); NITRITE NEGATIVE (NEGATIVE); SPECIFIC GRAVITY 1.005 (1.005-1.020); UROBILINOGEN NORMAL (NORMAL)
[2019-10-20 17:33] VITALS: BP 115/49
--- NOTE | 2019-10-20 19:00 | NUR ---
RECEIVED BEDSIDE REPORT PATIENT IS ALERT AND PLEASANTLY COMFUSED. RESPIRATIONS ARE EVEN AND UNLABORED. PATIENT REMAINS ON 6L NC. NO S/S OF DISTRESS. NO C/OP PAIN. CALL LIGHT WITHIN REACH. WILL CPOC.
[2019-10-20 19:30] VITALS: BP 116/55
[2019-10-21 00:33] VITALS: BP 102/44
[2019-10-21 04:56] VITALS: BP 107/48
[2019-10-21 05:55] LABS: HEMATOCRIT 24.4 % (42.0-54.0); HEMOGLOBIN 7.8 g/dL (13.5-17.5); LYMPHOCYTES 7.4 % (15-50); MCH 31.6 pg (26.0-34.0); MCV 98.8 fL (80.0-100.0); MEAN PLATELET VOLUME 9.5 fL (7.4-10.4); NEUTROPHILS 84.7 % (40-80); PLATELET COUNT 208 10x3/uL (130-400); RBC 2.47 10x6/uL (4.20-6.10); RDW 15.9 % (11.5-14.5); WBC 13.5 10x3/uL (4.8-10.8)
[2019-10-21 06:08] LABS: ALBUMIN 1.9 g/dL (3.4-5.0); ANION GAP 10.4 mmol/L (8-16); BILIRUBIN - TOTAL 0.46 mg/dL (0.2-1.3); CALCIUM 7.4 mg/dL (8.5-10.1); CARBON DIOXIDE 29.9 mmol/L (21.0-32.0); CREATININE - SERUM 1.2 mg/dL (0.6-1.3); POTASSIUM - SERUM 4.3 mmol/L (3.5-5.1); PROTEIN - SERUM 5.3 g/dL (6.4-8.2)
[2019-10-21 08:23] VITALS: BP 117/52
--- NOTE | 2019-10-21 11:46 | MORECARE ---
CASE MANAGEMENT DISCHARGE SUMMARY PATIENT: SHE MULTANI UNIT: [id number] ADM DATE: 10/06/19 AGE: 84 : 33 SEX: M ROOM/BED: D.2111 AUTHOR: CAT,DOC PHYSICIAN: REFERRING PHYSICIAN: HAKAN MEYER MD DATE OF SERVICE: 10/21/19 Discharge Plan Patient Name: SHE MULTANI Facility: [facility]:[place] : 1935 Planned Disposition: Home with Home Health Anticipated Discharge Date: Discharge Date: Expected LOS: Initial Reviewer: [email or web address] Initial Review Date: 10/06/2019 Generated: 10/21/19 12:45 pm DCP- Discharge Planning Updated by [email or web address]: Charlene Ng on 10/09/19 12:[address] PATIENT WILL BE ACCEPTED BY [facility] & [facility] WILL PROVIDE HIS FEEDING SUPPLY. [employer] [facility] WILL BE CONTACTING THE PATIENT'S NEPHEW TO SET UP A TEACH TIME. I SPOKE WITH YEVGENIY HIS NEPHEW THIS MORNING ABOUT WHAT THE PLAN WAS. HE STATED THAT HIS UNCLE CALLED HIM ALL NIGHT LONG AND WAS VERY CONFUSED AND HE IS USUALLY NOT CONFUSED AT ALL. CM WILL CONTINUE TO FOLLOW AND ASSIST NEEDED DCP- Discharge Planning Updated by [email or web address]: Charlene Ng on 10/08/19 11:[address] Patient Name: SHE MULTANI Admission Status: Elective Accout number: [id number] Admission Date: 10-06-2019 : 1935 Admission Diagnosis: Attending: HAKAN MEYER Current LOS: 2 Anticipated DC Date: Planned Disposition: Home with Home Health Primary Insurance: MEDICARE A & B Discharge Planning Comments: CM met with patient to complete initial dc planning assessment. CM educated patient on the CM role and verbal consent given by patient to complete assessment. Patient lives at home with his nephew. At discharge patient plans to return home and feels this is a safe discharge. CM discussed availability of home health, rehab services, and medical equipment. Patient has a wheelchair, walker and grab bars at home. His nephew will be his interstate bus driver home. He has a new PEG tube and will need teaching and education on that. VIKAS signed with [facility]. I will send referral to [facility]. Patient denied known discharge needs at this time. CM will continue to follow and will assist as needed with dc plans/needs. [employer] Records Clerk: Charlene Ng DCPIA - Discharge Planning Initial Assessment Updated by [id number]: Charlene Ng on 10/08/19 12:03 pm * Is the patient Alert and Oriented? Yes * How many steps to enter\exit or inside your home? * PCP NANNETTE LIRA * Pharmacy [facility] [address] * Preadmission Environment Home with Family * ADLs Independent * Equipment Grab Bars Rolling Walker Wheelchair * List name and contact numbers for known caregivers / representatives who currently or will assist patient after discharge: YEVGENIY (NEPHEW) [phone] * Verbal permission to speak to the caregivers and representatives has been obtained from the patient. N/A * Community resources currently utilized None * Additional services required to return to the preadmission environment? Yes * Can the patient safely return to the preadmission environment? Yes * Has this patient been hospitalized within the prior 30 days at any hospital? No [facility] Next Contact Date: 10/21/2019 Service Request Date: Service Type: Resolution: Reviewer: Comments: External Provider: [facility] Next Contact Date: 10/21/2019 Service Request Date: Service Type: Resolution: Reviewer: Comments: Coverage Notice Reviewer: [id number] Antonieta Ng Notice Issued Date-Time: 10/08/2019 9:20 Notice Type: IM Discharge Notice Notice Delivered To: Patient Relationship to Patient: Bacon Skinner Name: Delivery Method: HAND - Hand Delivered Cecy Days: Prior Verbal Notification: Recipient Understood Notice: Yes Recipient Signature: Yes Med Rec Note Co-signed by Attending: Coverage Notice Comment: Reviewer: [email or web address] Antonieta Ng Notice Issued Date-Time: 10/08/2019 9:30 Notice Type: Patient Choice Letter Notice Delivered To: Patient Relationship to Patient: Bacon Skinner Name: Delivery Method: HAND - Hand Delivered Cecy Days: Prior Verbal Notification: Recipient Understood Notice: Yes Recipient Signature: Yes Med Rec Note Co-signed by Attending: Coverage Notice Comment: vikas hall Last DP export: 10/09/19 12:29 p Patient Name: SHE MULTANI Page [id number] at 1146 All edits/amendments must be made on the electronic document DICTATION DATE: 10/21/19 1145 UNHAIRING MACHINE OPERATOR: CYNDI 10/21/19 1145 RPT#: [id number] DC DATE: STATUS: ADM IN [facility] [address] [place] [address] END OF REPORT
--- NOTE | 2019-10-21 11:52 | MORECARE ---
CASE MANAGEMENT DISCHARGE SUMMARY PATIENT: SHE MULTANI UNIT: [id number] ADM DATE: 10/06/19 AGE: 84 : 33 SEX: M ROOM/BED: D.2116 AUTHOR: CAT,DOC PHYSICIAN: REFERRING PHYSICIAN: HAKAN MEYER MD DATE OF SERVICE: 10/21/19 Discharge Plan Patient Name: SHE MULTANI Facility: [facility]:[place] : 1935 Planned Disposition: Home with Home Health Anticipated Discharge Date: Discharge Date: Expected LOS: Initial Reviewer: [email or web address] Initial Review Date: 10/06/2019 Generated: 10/21/19 12:51 pm Comments DCP- Discharge Planning Updated by [email or web address]: Humphrey Miranda on 10/21/19 10:[address] Patient Name: SHE MULTANI Encounter No: [id number] : 1935 Primary Insurance: MEDICARE A & B Anticipated DC Date: Planned Disposition: Home with Home Health External Planned Provider: [facility], [facility] DCP follow-up note: CM FAXED UPDATE TO [facility], . CM FAXED UPDATE TO [facility] AT [phone]. NEPHEW STILL PLANS FOR PT TO RETURN HOME AT DISCHARGE WITH BOLUS FEEDS. FOR DISCHARGE HOME WITH NEPHEW, NOTIFY [facility] AT [phone], FAX DISCHARGE INFORMATION TO [facility] AT [phone]. NOTIFY [facility] AT [phone], [facility] TO ARRANGE HOME DELIVERY OF FEEDING MATERIAL AND EQUIPMENT. CM TO CONTINUE TO FOLLOW AND ASSIST NEEDED. Humphrey Miranda, CASE MANAGEMENT DCP- Discharge Planning Updated by [id number]: Charlene Ng on 10/09/19 12:[address] PATIENT WILL BE ACCEPTED BY [facility] & [facility] WILL PROVIDE HIS FEEDING SUPPLY. MIT[employer] M[employer] [facility] WILL BE CONTACTING THE PATIENT'S NEPHEW TO SET UP A TEACH TIME. I SPOKE WITH YEVGENIY HIS NEPHEW THIS MORNING ABOUT WHAT THE PLAN WAS. HE STATED THAT HIS UNCLE CALLED HIM ALL NIGHT LONG AND WAS VERY CONFUSED AND HE IS USUALLY NOT CONFUSED AT ALL. CM WILL CONTINUE TO FOLLOW AND ASSIST NEEDED DCP- Discharge Planning Updated by [email or web address]: Charlene Ng on 10/08/19 11:[address] Patient Name: SHE MULTANI Admission Status: Elective Accout number: [id number] Admission Date: 10-06-2019 : 1935 Admission Diagnosis: Attending: HAKAN MEYER Current LOS: 2 Anticipated DC Date: Planned Disposition: Home with Home Health Primary Insurance: MEDICARE A & B Discharge Planning Comments: CM met with patient to complete initial dc planning assessment. CM educated patient on the CM role and verbal consent given by patient to complete assessment. Patient lives at home with his nephew. At discharge patient plans to return home and feels this is a safe discharge. CM discussed availability of home health, rehab services, and medical equipment. Patient has a wheelchair, walker and grab bars at home. His nephew will be his yard truck driver home. He has a new PEG tube and will need teaching and education on that. VIKAS signed with [facility]. I will send referral to [facility]. Patient denied known discharge needs at this time. CM will continue to follow and will assist as needed with dc plans/needs. College President: Charlene Ng DCPIA - Discharge Planning Initial Assessment Updated by [id number]: Charlene Ng on 10/08/19 12:03 pm * Is the patient Alert and Oriented? Yes * How many steps to enter\exit or inside your home? * PCP NANNETTE LIRA * Pharmacy [facility] [address] * Preadmission Environment Home with Family * ADLs Independent * Equipment Grab Bars Rolling Walker Wheelchair * List name and contact numbers for known caregivers / representatives who currently or will assist patient after discharge: YEVGENIY (NEPHEW) [phone] * Verbal permission to speak to the caregivers and representatives has been obtained from the patient. N/A * Community resources currently utilized None * Additional services required to return to the preadmission environment? Yes * Can the patient safely return to the preadmission environment? Yes * Has this patient been hospitalized within the prior 30 days at any hospital? No Coverage Notice Reviewer: [email or web address] Antonieta Ng Notice Issued Date-Time: 10/08/2019 9:20 Notice Type: IM Discharge Notice Notice Delivered To: Patient Relationship to Patient: Tig Welder Name: Delivery Method: HAND - Hand Delivered Cecy Days: Prior Verbal Notification: Recipient Understood Notice: Yes Recipient Signature: Yes Med Rec Note Co-signed by Attending: Coverage Notice Comment: Reviewer: [email or web address] Antonieta Ng Notice Issued Date-Time: 10/08/2019 9:30 Notice Type: Patient Choice Letter Notice Delivered To: Patient Relationship to Patient: Tig Welder Name: Delivery Method: HAND - Hand Delivered Cecy Days: Prior Verbal Notification: Recipient Understood Notice: Yes Recipient Signature: Yes Med Rec Note Co-signed by Attending: Coverage Notice Comment: vikas hall Last DP export: 10/21/19 10:46 a Patient Name: SHE MULTANI Page [id number] at 1152 All edits/amendments must be made on the electronic document DICTATION DATE: 10/21/19 1152 GUEST ROOM INSPECTOR: CYNDI 10/21/19 1152 RPT#: [id number] DC DATE: STATUS: ADM IN [facility] [address] [place] [address] END OF REPORT
--- NOTE | 2019-10-21 15:48 | NUR ---
I have reviewed this patient and I concur with the Shift Assessment completed by the Licensed Practical Nurse today this shift.
[2019-10-21 20:00] VITALS: BP 108/49
[2019-10-21 22:12] VITALS: BP 108/49
[2019-10-22] VITALS: BP 111/47
[2019-10-22 04:00] VITALS: BP 115/50
[2019-10-22 06:40] LABS: BASOPHILS 0.1 % (0-2); EOSINOPHILS 3.4 % (0-7); HEMATOCRIT 26.6 % (42.0-54.0); HEMOGLOBIN 8.1 g/dL (13.5-17.5); IMMATURE GRANULOCYTES 0.3 % (0-5); LYMPHOCYTES 8.6 % (15-50); MCH 30.2 pg (26.0-34.0); MCHC 30.5 g/dL (31.0-37.0); MCV 99.3 fL (80.0-100.0); MEAN PLATELET VOLUME 9.6 fL (7.4-10.4); MONOCYTES 5.3 % (2-11); NEUTROPHILS 82.3 % (40-80); PLATELET COUNT 221 10x3/uL (130-400); RBC 2.68 10x6/uL (4.20-6.10); RDW 15.6 % (11.5-14.5)
[2019-10-22 06:56] LABS: ALBUMIN 1.8 g/dL (3.4-5.0); ANION GAP 7.6 mmol/L (8-16); BILIRUBIN - TOTAL 0.52 mg/dL (0.2-1.3); CALCIUM 7.6 mg/dL (8.5-10.1); CARBON DIOXIDE 31.9 mmol/L (21.0-32.0); CREATININE - SERUM 1.3 mg/dL (0.6-1.3); POTASSIUM - SERUM 4.5 mmol/L (3.5-5.1); PROTEIN - SERUM 5.8 g/dL (6.4-8.2)
[2019-10-22 09:16] VITALS: BP 112/41
--- NOTE | 2019-10-22 09:48 | NUR ---
AMBULATES TO DOOR WITH UP ASSIST. UP IN CHAIR WITH CALL LIGHT IN REACH. WILL CONT. PLAN OF CARE.
--- NOTE | 2019-10-22 10:50 | MORECARE ---
CASE MANAGEMENT DISCHARGE SUMMARY PATIENT: SHE MULTANI UNIT: [id number] ADM DATE: 10/06/19 AGE: 84 : 33 SEX: M ROOM/BED: D.2116 AUTHOR: CAT,DOC PHYSICIAN: REFERRING PHYSICIAN: HAKAN MEYER MD DATE OF SERVICE: 10/22/19 Discharge Plan Patient Name: SHE MULTANI Facility: [facility]:[place] : 1935 Planned Disposition: Home with Home Health Anticipated Discharge Date: Discharge Date: Expected LOS: Initial Reviewer: [email or web address] Initial Review Date: 10/06/2019 Generated: 10/22/19 11:49 am Comments DCP- Discharge Planning Updated by [id number]: Humphrey Miranda on 10/22/19 9:[address] Patient Name: SHE MULTANI Encounter No: [id number] : 1935 Primary Insurance: MEDICARE A & B Anticipated DC Date: Planned Disposition: Home with Home Health External Planned Provider: [facility], [facility] DCP follow-up note: CM FAXED UPDATE TO [facility], . CM FAXED UPDATE TO [facility] AT [phone]. NEPHEW STILL PLANS FOR PT TO RETURN HOME AT DISCHARGE WITH BOLUS FEEDS. FOR DISCHARGE HOME WITH NEPHEW, NOTIFY [facility] AT [phone], FAX DISCHARGE INFORMATION TO [facility] AT [phone]. NOTIFY [facility] AT [phone], [facility] TO ARRANGE HOME DELIVERY OF FEEDING MATERIAL AND EQUIPMENT. CM TO CONTINUE TO FOLLOW AND ASSIST NEEDED. Humphrey Miranda, CASE MANAGEMENT Appended by Humphrey Miranda on 10/22/2019 10:49 CDT: FOR DISCHARGE HOME WITH NEPHEW, [facility] WILL NEED TUBE FEED ORDER TO SPECIFY FORMULA WITH SPECIFIC PHRASE "OR EQIVILENT." NOTIFY [facility] AT [phone], FAX DISCHARGE INFORMATION TO [facility] AT [phone]. NOTIFY [facility] AT [phone], [facility] TO ARRANGE HOME DELIVERY OF FEEDING MATERIAL AND EQUIPMENT. CM TO CONTINUE TO FOLLOW AND ASSIST NEEDED. Humphrey [place], CASE MANAGEMENT DCP- Discharge Planning Updated by [id number]: Charlene Ng on 10/09/19 12:[address] PATIENT WILL BE ACCEPTED BY [facility] & [facility] WILL PROVIDE HIS FEEDING SUPPLY. [employer] [facility] WILL BE CONTACTING THE PATIENT'S NEPHEW TO SET UP A TEACH TIME. I SPOKE WITH YEVGENIY HIS NEPHEW THIS MORNING ABOUT WHAT THE PLAN WAS. HE STATED THAT HIS UNCLE CALLED HIM ALL NIGHT LONG AND WAS VERY CONFUSED AND HE IS USUALLY NOT CONFUSED AT ALL. CM WILL CONTINUE TO FOLLOW AND ASSIST NEEDED DCP- Discharge Planning Updated by [id number]: Charlene Ng on 10/08/19 11:[address] Patient Name: SHE MULTANI Admission Status: Elective Accout number: [id number] Admission Date: 10-06-2019 : 1935 Admission Diagnosis: Attending: HAKAN MEYER Current LOS: 2 Anticipated DC Date: Planned Disposition: Home with Home Health Primary Insurance: MEDICARE A & B Discharge Planning Comments: CM met with patient to complete initial dc planning assessment. CM educated patient on the CM role and verbal consent given by patient to complete assessment. Patient lives at home with his nephew. At discharge patient plans to return home and feels this is a safe discharge. CM discussed availability of home health, rehab services, and medical equipment. Patient has a wheelchair, walker and grab bars at home. His nephew will be his septic pump truck driver home. He has a new PEG tube and will need teaching and education on that. VIKAS signed with [facility]. I will send referral to [facility]. Patient denied known discharge needs at this time. CM will continue to follow and will assist as needed with dc plans/needs. Treasury Accountant: Charlene Ng DCPIA - Discharge Planning Initial Assessment Updated by [email or web address]: Charlene Ng on 10/08/19 12:03 pm * Is the patient Alert and Oriented? Yes * How many steps to enter\\exit or inside your home? * PCP NANNETTE LIRA * Pharmacy [facility] [address] * Preadmission Environment Home with Family * ADLs Independent * Equipment Grab Bars Rolling Walker Wheelchair * List name and contact numbers for known caregivers / representatives who currently or will assist patient after discharge: YEVGENIY (NEPHEW) [phone] * Verbal permission to speak to the caregivers and representatives has been obtained from the patient. N/A * Community resources currently utilized None * Additional services required to return to the preadmission environment? Yes * Can the patient safely return to the preadmission environment? Yes * Has this patient been hospitalized within the prior 30 days at any hospital? No Coverage Notice Reviewer: [email or web address] Antonieta Ng Notice Issued Date-Time: 10/08/2019 9:20 Notice Type: IM Discharge Notice Notice Delivered To: Patient Relationship to Patient: Match Marker Name: Delivery Method: HAND - Hand Delivered Cecy Days: Prior Verbal Notification: Recipient Understood Notice: Yes Recipient Signature: Yes Med Rec Note Co-signed by Attending: Coverage Notice Comment: Reviewer: [email or web address] Antonieta Ng Notice Issued Date-Time: 10/08/2019 9:30 Notice Type: Patient Choice Letter Notice Delivered To: Patient Relationship to Patient: Match Marker Name: Delivery Method: HAND - Hand Delivered Cecy Days: Prior Verbal Notification: Recipient Understood Notice: Yes Recipient Signature: Yes Med Rec Note Co-signed by Attending: Coverage Notice Comment: [facility] hall Last DP export: 10/21/19 10:52 a Patient Name: SHE MULTANI Page [id number] at 1050 All edits/amendments must be made on the electronic document DICTATION DATE: 10/22/191048 HCC CODERS: CYNDI 10/22/19 104 RPT#: [id number] DC DATE: STATUS: ADM IN [facility] [address] [place] [address] END OF REPORT
[2019-10-22] MEDS ORDERED: CHRONULAC30 ML PEG (13:13)
--- NOTE | 2019-10-22 14:03 | NUR ---
02 SAT 85% ON RA AT REST AND 94% ON 02 3L NC.
--- NOTE | 2019-10-22 14:17 | MORECARE ---
CASE MANAGEMENT DISCHARGE SUMMARY PATIENT: SHE MULTANI UNIT: [id number] ADM DATE: 10/06/19 AGE: 84 : 33 SEX: M ROOM/BED: D.1048 AUTHOR: CAT,DOC PHYSICIAN: REFERRING PHYSICIAN: HAKAN MEYER MD DATE OF SERVICE: 10/22/19 Discharge Plan Patient Name: SHE MULTANI Facility: [facility]:[place] : 1935 Planned Disposition: Intermediate Facility Anticipated Discharge Date: 10/22/19 Discharge Date: Expected LOS: 16 Initial Reviewer: [email or web address] Initial Review Date: 10/06/2019 Generated: 10/22/19 3:17 pm DCP- Discharge Planning Updated by [email or web address]: Humphrey Miranda on 10/22/19 9:[address] Patient Name: SHE MULTANI Encounter No: [id number] : 1935 Primary Insurance: MEDICARE A & B Anticipated DC Date: Planned Disposition: Home with Home Health External Planned Provider: [facility], [facility] DCP follow-up note: CM FAXED UPDATE TO [facility], . CM FAXED UPDATE TO [facility] AT [phone]. NEPHEW STILL PLANS FOR PT TO RETURN HOME AT DISCHARGE WITH BOLUS FEEDS. FOR DISCHARGE HOME WITH NEPHEW, NOTIFY [facility] AT [phone], FAX DISCHARGE INFORMATION TO [facility] AT [phone]. NOTIFY [facility] AT [phone], [facility] TO ARRANGE HOME DELIVERY OF FEEDING MATERIAL AND EQUIPMENT. CM TO CONTINUE TO FOLLOW AND ASSIST NEEDED. Humphrey Miranda, CASE MANAGEMENT Appended by Humphrey Miranda on 10/22/2019 10:49 CDT: FOR DISCHARGE HOME WITH NEPHEW, [facility] WILL NEED TUBE FEED ORDER TO SPECIFY FORMULA WITH SPECIFIC PHRASE "OR EQIVILENT." NOTIFY [facility] AT [phone], FAX DISCHARGE INFORMATION TO [facility] AT [phone]. NOTIFY [facility] AT [phone], [facility] TO ARRANGE HOME DELIVERY OF FEEDING MATERIAL AND EQUIPMENT. CM TO CONTINUE TO FOLLOW AND ASSIST NEEDED. Humphrey Miranda, CASE MANAGEMENT DCP- Discharge Planning Updated by [id number]: Charlene Ng on 10/09/19 12:[address] PATIENT WILL BE ACCEPTED BY [facility] & [facility] WILL PROVIDE HIS FEEDING SUPPLY. [employer] [facility] WILL BE CONTACTING THE PATIENT'S NEPHEW TO SET UP A TEACH TIME. I SPOKE WITH YEVGENIY HIS NEPHEW THIS MORNING ABOUT WHAT THE PLAN WAS. HE STATED THAT HIS UNCLE CALLED HIM ALL NIGHT LONG AND WAS VERY CONFUSED AND HE IS USUALLY NOT CONFUSED AT ALL. CM WILL CONTINUE TO FOLLOW AND ASSIST NEEDED DCP- Discharge Planning Updated by [email or web address]: Charlene Ng on 10/08/19 11:[address] Patient Name: SHE MULTANI Admission Status: Elective Accout number: [id number] Admission Date: 10-06-2019 : 1935 Admission Diagnosis: Attending: HAKAN MEYER Current LOS: 2 Anticipated DC Date: Planned Disposition: Home with Home Health Primary Insurance: MEDICARE A & B Discharge Planning Comments: CM met with patient to complete initial dc planning assessment. CM educated patient on the CM role and verbal consent given by patient to complete assessment. Patient lives at home with his nephew. At discharge patient plans to return home and feels this is a safe discharge. CM discussed availability of home health, rehab services, and medical equipment. Patient has a wheelchair, walker and grab bars at home. His nephew will be his deliver driver home. He has a new PEG tube and will need teaching and education on that. VIKAS signed with [facility]. I will send referral to [facility]. Patient denied known discharge needs at this time. CM will continue to follow and will assist as needed with dc plans/needs. Level Vial Inside Grinder: Charlene Ng DCPIA - Discharge Planning Initial Assessment Updated by [email or web address]: Charlene Ng on 10/08/19 12:03 pm * Is the patient Alert and Oriented? Yes * How many steps to enter\\exit or inside your home? * PCP NANNETTE LIRA * Pharmacy [facility] [address] * Preadmission Environment Home with Family * ADLs Independent * Equipment Grab Bars Rolling Walker Wheelchair * List name and contact numbers for known caregivers / representatives who currently or will assist patient after discharge: YEVGENIY (NEPHEW) [phone] * Verbal permission to speak to the caregivers and representatives has been obtained from the patient. N/A * Community resources currently utilized None * Additional services required to return to the preadmission environment? Yes * Can the patient safely return to the preadmission environment? Yes * Has this patient been hospitalized within the prior 30 days at any hospital? No Coverage Notice Reviewer: [email or web address] Antonieta Ng Notice Issued Date-Time: 10/08/2019 9:20 Notice Type: IM Discharge Notice Notice Delivered To: Patient Relationship to Patient: Paint Line Supervisor Name: Delivery Method: HAND - Hand Delivered Cecy Days: Prior Verbal Notification: Recipient Understood Notice: Yes Recipient Signature: Yes Med Rec Note Co-signed by Attending: Coverage Notice Comment: Reviewer: [id number] Antonieta Ng Notice Issued Date-Time: 10/08/2019 9:30 Notice Type: Patient Choice Letter Notice Delivered To: Patient Relationship to Patient: Paint Line Supervisor Name: Delivery Method: HAND - Hand Delivered Cecy Days: Prior Verbal Notification: Recipient Understood Notice: Yes Recipient Signature: Yes Med Rec Note Co-signed by Attending: Coverage Notice Comment: vikas hall Last DP export: 10/22/19 9:50 a Patient Name: SHE MULTANI Page [id number] at 1417 All edits/amendments must be made on the electronic document DICTATION DATE: 10/22/191416 LABORATORY APPARATUS GLASS BLOWER: CYNDI 10/22/191416 RPT#: [id number] DC DATE: STATUS: ADM IN [facility] [address] [place] [address] END OF REPORT
[2019-10-22 14:18] VITALS: BP 110/52
--- NOTE | 2019-10-22 14:39 | MORECARE ---
CASE MANAGEMENT DISCHARGE SUMMARY PATIENT: SHE MULTANI UNIT: [id number] ADM DATE: 10/06/19 AGE: 84 : 33 SEX: M ROOM/BED: D.3535 AUTHOR: CAT,DOC PHYSICIAN: REFERRING PHYSICIAN: HAKAN MEYER MD DATE OF SERVICE: 10/22/19 Discharge Plan Patient Name: SHE MULTANI Facility: [facility]:[place] : 1935 Planned Disposition: [facility] Facility Anticipated Discharge Date: 10/22/19 Discharge Date: Expected LOS: 16 Initial Reviewer: [email or web address] Initial Review Date: 10/06/2019 Generated: 10/22/19 3:38 pm DCP- Discharge Planning Updated by [email or web address]: Humphrey Miranda on 10/22/19 9:[address] Patient Name: SHE MULTANI Encounter No: [id number] : 1935 Primary Insurance: MEDICARE A & B Anticipated DC Date: Planned Disposition: Home with Home Health External Planned Provider: [facility], [facility] DCP follow-up note: CM FAXED UPDATE TO [facility], . CM FAXED UPDATE TO [facility] AT [phone]. NEPHEW STILL PLANS FOR PT TO RETURN HOME AT DISCHARGE WITH BOLUS FEEDS. FOR DISCHARGE HOME WITH NEPHEW, NOTIFY [facility] AT [phone], FAX DISCHARGE INFORMATION TO [facility] AT [phone]. NOTIFY [facility] AT [phone], [facility] TO ARRANGE HOME DELIVERY OF FEEDING MATERIAL AND EQUIPMENT. CM TO CONTINUE TO FOLLOW AND ASSIST NEEDED. Humphrey Miranda, CASE MANAGEMENT Appended by Humphrey Miranda on 10/22/2019 10:49 CDT: FOR DISCHARGE HOME WITH NEPHEW, [facility] WILL NEED TUBE FEED ORDER TO SPECIFY FORMULA WITH SPECIFIC PHRASE "OR EQIVILENT." NOTIFY [facility] AT [phone], FAX DISCHARGE INFORMATION TO [facility] AT [phone]. NOTIFY [facility] AT [phone], [facility] TO ARRANGE HOME DELIVERY OF FEEDING MATERIAL AND EQUIPMENT. CM TO CONTINUE TO FOLLOW AND ASSIST NEEDED. Humphrey Miranda, CASE MANAGEMENT DCP- Discharge Planning Updated by [email or web address]: Charlene Ng on 10/09/19 12:[address] PATIENT WILL BE ACCEPTED BY [facility] & [facility] WILL PROVIDE HIS FEEDING SUPPLY. [employer] [facility] WILL BE CONTACTING THE PATIENT'S NEPHEW TO SET UP A TEACH TIME. I SPOKE WITH YEVGENIY HIS NEPHEW THIS MORNING ABOUT WHAT THE PLAN WAS. HE STATED THAT HIS UNCLE CALLED HIM ALL NIGHT LONG AND WAS VERY CONFUSED AND HE IS USUALLY NOT CONFUSED AT ALL. CM WILL CONTINUE TO FOLLOW AND ASSIST NEEDED DCP- Discharge Planning Updated by [email or web address]: Charlene Ng on 10/08/19 11:[address] Patient Name: SHE MULTANI Admission Status: Elective Accout number: [id number] Admission Date: 10-06-2019 : 1935 Admission Diagnosis: Attending: HAKAN MEYER Current LOS: 2 Anticipated DC Date: Planned Disposition: Home with Home Health Primary Insurance: MEDICARE A & B Discharge Planning Comments: CM met with patient to complete initial dc planning assessment. CM educated patient on the CM role and verbal consent given by patient to complete assessment. Patient lives at home with his nephew. At discharge patient plans to return home and feels this is a safe discharge. CM discussed availability of home health, rehab services, and medical equipment. Patient has a wheelchair, walker and grab bars at home. His nephew will be his dedicated local truck driver home. He has a new PEG tube and will need teaching and education on that. VIKAS signed with [facility]. I will send referral to [facility]. Patient denied known discharge needs at this time. CM will continue to follow and will assist as needed with dc plans/needs. Cad Administrator: Charlene Ng DCPIA - Discharge Planning Initial Assessment Updated by [email or web address]: Charlene Ng on 10/08/19 12:03 pm * Is the patient Alert and Oriented? Yes * How many steps to enter\\exit or inside your home? * PCP NANNETTE LIRA * Pharmacy [facility] [address] * Preadmission Environment Home with Family * ADLs Independent * Equipment Grab Bars Rolling Walker Wheelchair * List name and contact numbers for known caregivers / representatives who currently or will assist patient after discharge: YEVGENIY (NEPHEW) [phone] * Verbal permission to speak to the caregivers and representatives has been obtained from the patient. N/A * Community resources currently utilized None * Additional services required to return to the preadmission environment? Yes * Can the patient safely return to the preadmission environment? Yes * Has this patient been hospitalized within the prior 30 days at any hospital? No External Providers External Provider: [facility] Next Contact Date: 10/22/2019 Service Request Date: Service Type: Resolution: Reviewer: Comments: Coverage Notice Reviewer: [id number] Ng Notice Issued Date-Time: 10/08/2019 9:20 Notice Type: IM Discharge Notice Notice Delivered To: Patient Relationship to Patient: Project Manager Interior Design Name: Delivery Method: HAND - Hand Delivered Cecy Days: Prior Verbal Notification: Recipient Understood Notice: Yes Recipient Signature: Yes Med Rec Note Co-signed by Attending: Coverage Notice Comment: Reviewer: [email or web address] Ng Notice Issued Date-Time: 10/08/2019 9:30 Notice Type: Patient Choice Letter Notice Delivered To: Patient Relationship to Patient: Project Manager Interior Design Name: Delivery Method: HAND - Hand Delivered Cecy Days: Prior Verbal Notification: Recipient Understood Notice: Yes Recipient Signature: Yes Med Rec Note Co-signed by Attending: Coverage Notice Comment: vikas elite Last DP export: 10/22/19 1:17 p Patient Name: SHE MULTANI Page 26616 at 1439 All edits/amendments must be made on the electronic document DICTATION DATE: 10/22/191437 VALVE TECHNICIAN: CYNDI 10/22/19 1438 RPT#: [id number] DC DATE: STATUS: ADM IN [facility] [address] [place] [address] END OF REPORT
--- NOTE | 2019-10-22 15:29 | MORECARE ---
CASE MANAGEMENT DISCHARGE SUMMARY PATIENT: SHE MULTANI UNIT: [id number] ADM DATE: 10/06/19 AGE: 84 : 33 SEX: M ROOM/BED: D.2115 AUTHOR: CAT,DOC PHYSICIAN: REFERRING PHYSICIAN: HAKAN MEYER MD DATE OF SERVICE: 10/22/19 Discharge Plan Patient Name: SHE MULTANI Facility: [facility]:[place] : 1935 Planned Disposition: Shelter Facility Anticipated Discharge Date: 10/22/19 Discharge Date: Expected LOS: 16 Initial Reviewer: [id number] Initial Review Date: 10/06/2019 Generated: 10/22/19 4:28 pm DCP- Discharge Planning Updated by [email or web address]: Humphrey Miranda on 10/22/19 9:[address] Patient Name: SHE MULTANI Encounter No: [id number] : 1935 Primary Insurance: MEDICARE A & B Anticipated DC Date: Planned Disposition: Home with Home Health External Planned Provider: [facility], [facility] DCP follow-up note: CM FAXED UPDATE TO [facility], . CM FAXED UPDATE TO [facility] AT [phone]. NEPHEW STILL PLANS FOR PT TO RETURN HOME AT DISCHARGE WITH BOLUS FEEDS. FOR DISCHARGE HOME WITH NEPHEW, NOTIFY [facility] AT [phone], FAX DISCHARGE INFORMATION TO [facility] AT [phone]. NOTIFY [facility] AT [phone], [facility] TO ARRANGE HOME DELIVERY OF FEEDING MATERIAL AND EQUIPMENT. CM TO CONTINUE TO FOLLOW AND ASSIST NEEDED. Humphrey Miranda, CASE MANAGEMENT Appended by Humphrey Miranda on 10/22/2019 10:49 CDT: FOR DISCHARGE HOME WITH NEPHEW, [facility] WILL NEED TUBE FEED ORDER TO SPECIFY FORMULA WITH SPECIFIC PHRASE "OR EQIVILENT." NOTIFY [facility] AT [phone], FAX DISCHARGE INFORMATION TO [facility] AT [phone]. NOTIFY [facility] AT [phone], [facility] TO ARRANGE HOME DELIVERY OF FEEDING MATERIAL AND EQUIPMENT. CM TO CONTINUE TO FOLLOW AND ASSIST NEEDED. Humphrey Miranda, CASE MANAGEMENT DCP- Discharge Planning Updated by [email or web address]: Charlene Ng on 10/09/19 12:[address] PATIENT WILL BE ACCEPTED BY [facility] & [facility] WILL PROVIDE HIS FEEDING SUPPLY. [employer] [facility] WILL BE CONTACTING THE PATIENT'S NEPHEW TO SET UP A TEACH TIME. I SPOKE WITH YEVGENIY HIS NEPHEW THIS MORNING ABOUT WHAT THE PLAN WAS. HE STATED THAT HIS UNCLE CALLED HIM ALL NIGHT LONG AND WAS VERY CONFUSED AND HE IS USUALLY NOT CONFUSED AT ALL. CM WILL CONTINUE TO FOLLOW AND ASSIST NEEDED DCP- Discharge Planning Updated by [email or web address]: Charlene Ng on 10/08/19 11:[address] Patient Name: SHE MULTANI Admission Status: Elective Accout number: [id number] Admission Date: 10-06-2019 : 1935 Admission Diagnosis: Attending: HAKAN MEYER Current LOS: 2 Anticipated DC Date: Planned Disposition: Home with Home Health Primary Insurance: MEDICARE A & B Discharge Planning Comments: CM met with patient to complete initial dc planning assessment. CM educated patient on the CM role and verbal consent given by patient to complete assessment. Patient lives at home with his nephew. At discharge patient plans to return home and feels this is a safe discharge. CM discussed availability of home health, rehab services, and medical equipment. Patient has a wheelchair, walker and grab bars at home. His nephew will be his diesel truck driver home. He has a new PEG tube and will need teaching and education on that. VIKAS signed with [facility]. I will send referral to [facility]. Patient denied known discharge needs at this time. CM will continue to follow and will assist as needed with dc plans/needs. Photogrammetric Engineer: Charlene Ng DCPIA - Discharge Planning Initial Assessment Updated by [email or web address]: Charlene Ng on 10/08/19 12:03 pm * Is the patient Alert and Oriented? Yes * How many steps to enter\\exit or inside your home? * PCP NANNETTE LIRA * Pharmacy [facility] [address] * Preadmission Environment Home with Family * ADLs Independent * Equipment Grab Bars Rolling Walker Wheelchair * List name and contact numbers for known caregivers / representatives who currently or will assist patient after discharge: YEVGENIY (NEPHEW) [phone] * Verbal permission to speak to the caregivers and representatives has been obtained from the patient. N/A * Community resources currently utilized None * Additional services required to return to the preadmission environment? Yes * Can the patient safely return to the preadmission environment? Yes * Has this patient been hospitalized within the prior 30 days at any hospital? No Coverage Notice Reviewer: [email or web address] Antonieta Ng Notice Issued Date-Time: 10/08/2019 9:20 Notice Type: IM Discharge Notice Notice Delivered To: Patient Relationship to Patient: Facilities Maintenance Manager Name: Delivery Method: HAND - Hand Delivered Cecy Days: Prior Verbal Notification: Recipient Understood Notice: Yes Recipient Signature: Yes Med Rec Note Co-signed by Attending: Coverage Notice Comment: Reviewer: [email or web address] Antonieta Ng Notice Issued Date-Time: 10/08/2019 9:30 Notice Type: Patient Choice Letter Notice Delivered To: Patient Relationship to Patient: Facilities Maintenance Manager Name: Delivery Method: HAND - Hand Delivered Cecy Days: Prior Verbal Notification: Recipient Understood Notice: Yes Recipient Signature: Yes Med Rec Note Co-signed by Attending: Coverage Notice Comment: iv[facility] hall Last DP export: 10/22/19 1:39 p Patient Name: SHE MULTANI Page [id number] at 1529 All edits/amendments must be made on the electronic document DICTATION DATE: 10/22/191527 FRONT END LOADER DRIVER: CYNDI 10/22/191527 RPT#: [id number] DC DATE: STATUS: ADM IN [facility] [address] [place] [address] END OF REPORT
--- NOTE | 2019-10-22 16:20 | MORECARE ---
CASE MANAGEMENT DISCHARGE SUMMARY PATIENT: SHE MULTANI UNIT: [id number] ADM DATE: 10/06/19 AGE: 84 : 33 SEX: M ROOM/BED: D.1579 AUTHOR: CAT,DOC PHYSICIAN: REFERRING PHYSICIAN: HAKAN MEYER MD DATE OF SERVICE: 10/22/19 Discharge Plan Patient Name: SHE MULTANI Facility: [facility]:[place] : 1935 Planned Disposition: Alf Facility Anticipated Discharge Date: 10/22/19 Discharge Date: Expected LOS: 16 Initial Reviewer: [id number] Initial Review Date: 10/06/2019 Generated: 10/22/19 5:20 pm Comments DCP- Discharge Planning Updated by [id number]: Humphrey Miranda on 10/22/19 3:[address] Patient Name: SHE MULTANI Encounter No: [id number] : 1935 Primary Insurance: MEDICARE A & B Anticipated DC Date: 10-22-2019 Planned Disposition: Alf Facility External Planned Provider: [facility], MEDICARE REHAB BED DCP follow-up note: CM RECEIVED DISCHARGE ORDER, SPOKE TO PT IN ROOM WHO IS IN AGREEMENT WITH DISCHARGE TODAY, ASKED CM TO CALL HIS NEPHEW, YEVGENIY. CM CALLED YEVGENIY VIDES AT [phone], NOTIFIED OF DISCHARGE TODAY. YEVGENIY STATED HE WAS SUPRISED OF DISCHARGE AND PT IS NOT STRONG ENOUGH TO GO HOME YET. CM DISCUSSED REHAB OPTIONS. YEVGENIY IS IN AGREEMENT WITH PRISON BUT USED 20 NON COPAY MEDICARE DAYS AT [place] AND PT CANNOT AFFORD THE COPAY. PT DOES HAVE VA BENEFITS. CM DISCUSSED REFERRING TO [facility] IN [place], WHO HAS A VA CONTRACT AND CM COULD HAVE [facility] CHECK WITH THE VA TO SEE IF THEY WILL COVER THE COPAY THAT MEDICARE DOES NOT. YEVGENIY IN AGREEMENT. CHOICE COMPLETED. CM DISCUSSED IMPORTANT MESSAGE FROM MEDICARE, YEVGENIY REPORTS HAVING FIRST COPY PROVIDED BY CM. CM LEFT SECOND COPY IN ROOM WITH PT TODAY. CM NOTIFIED VIDHI GUERRIER AND BLANKET WEAVER NURSE. CM FAXED REFERRAL TO [facility] VIA DIANN AT [phone]. CM NOTIFED SALINA OF REFERRAL AT [phone]. CM WAITING ADMISSION DETERMINATION FROM [facility]. Humphrey Miranda CASE MANAGEMENT DCP- Discharge Planning Updated by [id number]: Humphrey Miranda on 10/22/19 9:[address] Patient Name: SHE MULTANI Encounter No: [id number] : 1935 Primary Insurance: MEDICARE A & B Anticipated DC Date: Planned Disposition: Home with Home Health External Planned Provider: [facility] [place] [facility], [facility] DCP follow-up note: CM FAXED UPDATE TO [facility], . CM FAXED UPDATE TO [facility] AT [phone]. NEPHEW STILL PLANS FOR PT TO RETURN HOME AT DISCHARGE WITH BOLUS FEEDS. FOR DISCHARGE HOME WITH NEPHEW, NOTIFY [facility] AT [phone], FAX DISCHARGE INFORMATION TO [facility] AT [phone]. NOTIFY [facility] AT [phone], [facility] TO ARRANGE HOME DELIVERY OF FEEDING MATERIAL AND EQUIPMENT. CM TO CONTINUE TO FOLLOW AND ASSIST NEEDED. Humphrey Miranda, CASE MANAGEMENT Appended by Humphrey Miranda on 10/22/2019 10:49 CDT: FOR DISCHARGE HOME WITH NEPHEW, [facility] WILL NEED TUBE FEED ORDER TO SPECIFY FORMULA WITH SPECIFIC PHRASE "OR EQIVILENT." NOTIFY [facility] in [place] [facility] AT [phone], FAX DISCHARGE INFORMATION TO [facility] AT [phone]. NOTIFY [facility] AT [phone], [facility] TO ARRANGE HOME DELIVERY OF FEEDING MATERIAL AND EQUIPMENT. CM TO CONTINUE TO FOLLOW AND ASSIST NEEDED. Humphrey Miranda, CASE MANAGEMENT DCP- Discharge Planning Updated by [id number]: Charlene Ng on 10/09/19 12:[address] PATIENT WILL BE ACCEPTED BY [facility] & [facility] WILL PROVIDE HIS FEEDING SUPPLY. [facility] WILL BE CONTACTING THE PATIENT'S NEPHEW TO SET UP A TEACH TIME. I SPOKE WITH YEVGENIY HIS NEPHEW THIS MORNING ABOUT WHAT THE PLAN WAS. HE STATED THAT HIS UNCLE CALLED HIM ALL NIGHT LONG AND WAS VERY CONFUSED AND HE IS USUALLY NOT CONFUSED AT ALL. CM WILL CONTINUE TO FOLLOW AND ASSIST NEEDED DCP- Discharge Planning Updated by [id number]: Charlene Ng on 10/08/19 11:[address] Patient Name: SHE MULTANI Admission Status: Elective Accout number: [id number] Admission Date: 10-06-2019 : 1935 Admission Diagnosis: Attending: HAKAN MEYER Current LOS: 2 Anticipated DC Date: Planned Disposition: Home with Home Health Primary Insurance: MEDICARE A & B Discharge Planning Comments: CM met with patient to complete initial dc planning assessment. CM educated patient on the CM role and verbal consent given by patient to complete assessment. Patient lives at home with his nephew. At discharge patient plans to return home and feels this is a safe discharge. CM discussed availability of home health, rehab services, and medical equipment. Patient has a wheelchair, walker and grab bars at home. His nephew will be his clamp truck driver home. He has a new PEG tube and will need teaching and education on that. VIKAS signed with [facility]. I will send referral to [facility]. Patient denied known discharge needs at this time. CM will continue to follow and will assist as needed with dc plans/needs. Road Production General Manager: Charlene Ng DCPIA - Discharge Planning Initial Assessment Updated by [id number]: Charlene Ng on 10/08/19 12:03 pm * Is the patient Alert and Oriented? Yes * How many steps to enter\\exit or inside your home? * PCP NANNETTE LIRA * Pharmacy [facility] ON [address] * Preadmission Environment Home with Family * ADLs Independent * Equipment Grab Bars Rolling Walker Wheelchair * List name and contact numbers for known caregivers / representatives who currently or will assist patient after discharge: YEVGENIY (NEPHEW) [phone] * Verbal permission to speak to the caregivers and representatives has been obtained from the patient. N/A * Community resources currently utilized None * Additional services required to return to the preadmission environment? Yes * Can the patient safely return to the preadmission environment? Yes * Has this patient been hospitalized within the prior 30 days at any hospital? No Coverage Notice Reviewer: [id number] - Charlene Ng Notice Issued Date-Time: 10/08/2019 9:20 Notice Type: IM Discharge Notice Notice Delivered To: Patient Relationship to Patient: Oracle Sql Developer Name: Delivery Method: HAND - Hand Delivered Cecy Days: Prior Verbal Notification: Recipient Understood Notice: Yes Recipient Signature: Yes Med Rec Note Co-signed by Attending: Coverage Notice Comment: Reviewer: [id number] Antonieta Ng Notice Issued Date-Time: 10/08/2019 9:30 Notice Type: Patient Choice Letter Notice Delivered To: Patient Relationship to Patient: Oracle Sql Developer Name: Delivery Method: HAND - Hand Delivered Cecy Days: Prior Verbal Notification: Recipient Understood Notice: Yes Recipient Signature: Yes Med Rec Note Co-signed by Attending: Coverage Notice Comment: vikas hall Reviewer: [id number] Miranda Notice Issued Date-Time: 10/22/2019 14:05 Notice Type: IM Discharge Notice Notice Delivered To: Family Member Relationship to Patient: Nephew Oracle Sql Developer Name: YEVGENIY SIDDIQI Delivery Method: PHONE - Phone Cecy Days: Prior Verbal Notification: Recipient Understood Notice: Yes Recipient Signature: Med Rec Note Co-signed by Attending: Coverage Notice Comment: Reviewer: [id number] Miranda Notice Issued Date-Time: 10/22/2019 14:05 Notice Type: Patient Choice Letter Notice Delivered To: Family Member Relationship to Patient: Nephew Oracle Sql Developer Name: YEVGENIY SIDDIQI Delivery Method: PHONE - Phone Cecy Days: Prior Verbal Notification: Recipient Understood Notice: Yes Recipient Signature: Med Rec Note Co-signed by Attending: Coverage Notice Comment: [facility] Last DP export: 10/22/19 2:29 p Patient Name: SHE MULATNI Page [id number] at 1620 All edits/amendments must be made on the electronic document DICTATION DATE: 10/22/191619 ASSISTANT MANAGER TRAINEE: CYNDI 10/22/19 1620 RPT#: [id number] DC DATE: STATUS: ADM IN [facility] [address] [place] [address] END OF REPORT
[2019-10-22 18:14] VITALS: BP 110/45
--- NOTE | 2019-10-22 19:22 | NUR ---
RECEIVED BEDSIDE REPORT. PATIENT IS ALERT AND ORIENTED, RESTING COMFORTABLY IN BED. RESPIRATIONS ARE EVEN AND UNLABORED. NO S/S OF DISTRESS. NO C/O PAIN. CALL IGHT WITHIN REACH. WILL CPOC.
[2019-10-22 20:00] VITALS: BP 101/46
--- NOTE | 2019-10-22 22:36 | NUR ---
PATIENT COMING OF PAIN. PATIENT STATED TYLENOL WOULD NOT WORK. NOTIFIED SACHIN IZAGUIRRE APRN. ONE MG OF MORPHINE IV Q4 ORDERED.
--- NOTE | 2019-10-23 07:15 | NUR ---
RECEIVED PT IN BED AAOX4 RESP UNLABORED SKIN W/D COLOR WNL DENIES ANY DISCOMFORT OR NEEDS AT THIS TIME
--- NOTE | 2019-10-23 07:15 | NUR ---
RECEIVED PT IN BED EYES CLOSED RESP UNLABORED SKIN W/D COLOR PALE PEG TUBE PATENT WITH OSMOLITE 1.0 AT 60 CC/HR PER PUMPTELEMETRY SB RATE 59 RT UPPER ARM PATENT WITH D5NS AT 30 CC/HR PER PUMP SITE FREE OF REDNESS OR EDEMA F/C PATET WITH YELLOW URINE RESIDUAL CHECKED LESS THAN 5 CC WILL CONTINUE TO MONITOR
[2019-10-23 08:56] VITALS: BP 125/69
--- NOTE | 2019-10-23 12:36 | NUR ---
Nutrition follow-up: Pt to discharge to [facility] today. Request made to change TF formula to Jevity 1.2 sourav 2/2 Osmolite 1.0 not on [facility] formulary. Recommend Jevity 1.2 sourav @ goal rate of 60 ml/hr. Flush with 100 ml H2O q 4 hours to meet 1 ml/kcal/24 hours. This regimen will provide: 1728 kcal 80 gm protein 1762 cc free H2O Recommend weighing pt 2x/week to determine if TF regimen allowing for gradual wt increase to IBW.
[2019-10-23 13:07] VITALS: BP 92/43
--- NOTE | 2019-10-23 13:18 | MORECARE ---
CASE MANAGEMENT DISCHARGE SUMMARY PATIENT: SHE MULTANI UNIT: [id number] ADM DATE: 10/06/19 AGE: 84 : 33 SEX: M ROOM/BED: D.8069 AUTHOR: CAT,DOC PHYSICIAN: REFERRING PHYSICIAN: HAKAN MEYER MD DATE OF SERVICE: 10/23/19 Discharge Plan Patient Name: SHE MULTANI Facility: [facility]:[place] : 1935 Planned Disposition: Retirement Facility Anticipated Discharge Date: 10/22/19 Discharge Date: Expected LOS: 16 Initial Reviewer: [id number] Initial Review Date: 10/06/2019 Generated: 10/23/19 2:18 pm Comments DCP- Discharge Planning Updated by [id number]: Humphrey Miranda on 10/23/19 12:[address] Patient Name: SHE MULTANI Encounter No: [id number] : 1935 Primary Insurance: MEDICARE A & B Anticipated DC Date: 10-22-2019 Planned Disposition: Retirement Facility External Planned Provider: [facility], MEDICARE REHAB BED DCP follow-up note: CM RECEIVED CALL FROM PT'S NEPHEW, YEVGENIY VIDES AT [phone], NOTIFIED OF WAITING ON [facility] FOR DETERMINATION. YEVGENIY IS IN AGREEMENT WITH CUSTODIAL AT [facility] IF ACCEPTED. CM RECEIVED CALL FROM [facility], PT IS OUT OF NON COPAY DAYS AND HAS 80 DAYS WITH COPAY. PT IS OVER LIMIT FOR MEDICAID ADN NOT VA CONTRACT ELIGIBLE. DIANN HAS DISCUSSED THIS WITH PT'S NEPHEW YEVGENIY WHO IS IN AGREEMENT WITH REHAB AT [facility] AND WILL PAY COPAY FOR 10 DAYS. [facility] STOCKS JEVITY AND THEY WILL NEED ORDERS FOR FEEDING; CM EXPLAINED THAT THE ORDER ALREADY FAXED STATES "OR EQUIVILENT". DIANN ASKED FOR CLAIFICATION. CM SPOKE TO DROP PIT WORKER DUARTE WHO PROVIDED CLARIFICATION. CM FAXED DROP PIT WORKER NOTE AND DISCHARGE INFORMATION TO [facility] AT [phone]. CM WAITING ADMISSION DETERMINATION FROM [facility]. RENITA Buck DCP- Discharge Planning Updated by [id number]: Humphrey Miranda on 10/22/19 3:[address] Patient Name: SHE MULTANI Encounter No: [id number] : 1935 Primary Insurance: MEDICARE A & B Anticipated DC Date: 10-22-2019 Planned Disposition: Retirement Facility External Planned Provider: [facility], MEDICARE REHAB BED DCP follow-up note: CM RECEIVED DISCHARGE ORDER, SPOKE TO PT IN ROOM WHO IS IN AGREEMENT WITH DISCHARGE TODAY, ASKED CM TO CALL HIS NEPHEW, YEVGENIY. CM CALLED YEVGENIY VIDES AT [phone], NOTIFIED OF DISCHARGE TODAY. YEVGENIY STATED HE WAS SUPRISED OF DISCHARGE AND PT IS NOT STRONG ENOUGH TO GO HOME YET. CM DISCUSSED REHAB OPTIONS. YEVGENIY IS IN AGREEMENT WITH CUSTODIAL BUT USED 20 NON COPAY MEDICARE DAYS AT [place] AND PT CANNOT AFFORD THE COPAY. PT DOES HAVE VA BENEFITS. CM DISCUSSED REFERRING TO [facility] IN [place], WHO HAS A VA CONTRACT AND CM COULD HAVE [facility] CHECK WITH THE VA TO SEE IF THEY WILL COVER THE COPAY THAT MEDICARE DOES NOT. YEVGENIY IN AGREEMENT. CHOICE COMPLETED. CM DISCUSSED IMPORTANT MESSAGE FROM MEDICARE, YEVGENIY REPORTS HAVING FIRST COPY PROVIDED BY CM. CM LEFT SECOND COPY IN ROOM WITH PT TODAY. CM NOTIFIED VIDHI GUERRIER AND ENTRY LEVEL CIVIL ENGINEER NURSE. CM FAXED REFERRAL TO [facility] VIA DIANN AT [phone]. CM NOTIFED DIANN OF REFERRAL AT [phone]. CM WAITING ADMISSION DETERMINATION FROM [facility]. Humphrey Miranda, CASE MANAGEMENT DCP- Discharge Planning Updated by [id number]: Humphrey Miranda on 10/22/19 9:[address] Patient Name: SHE MULTANI Encounter No: [id number] : 1935 Primary Insurance: MEDICARE A & B Anticipated DC Date: Planned Disposition: Home with Home Health External Planned Provider: [facility] DCP follow-up note: CM FAXED UPDATE TO [facility], . CM FAXED UPDATE TO [facility] AT [phone]. NEPHEW STILL PLANS FOR PT TO RETURN HOME AT DISCHARGE WITH BOLUS FEEDS. FOR DISCHARGE HOME WITH NEPHEW, NOTIFY [facility] AT [phone], FAX DISCHARGE INFORMATION TO [facility] AT [phone]. NOTIFY [facility] AT [phone], [facility] TO ARRANGE HOME DELIVERY OF FEEDING MATERIAL AND EQUIPMENT. CM TO CONTINUE TO FOLLOW AND ASSIST NEEDED. Humphrey Miranda, CASE MANAGEMENT Appended by Humphrey Miranda on 10/22/2019 10:49 CDT: FOR DISCHARGE HOME WITH NEPHEW, [facility] WILL NEED TUBE FEED ORDER TO SPECIFY FORMULA WITH SPECIFIC PHRASE "OR EQIVILENT." NOTIFY [facility] AT [phone], FAX DISCHARGE INFORMATION TO [facility] AT [phone]. NOTIFY [facility] AT [phone], [facility] TO ARRANGE HOME DELIVERY OF FEEDING MATERIAL AND EQUIPMENT. CM TO CONTINUE TO FOLLOW AND ASSIST NEEDED. Humphrey Miranda, CASE MANAGEMENT DCP- Discharge Planning Updated by [id number]: Charlene Ng on 10/09/19 12:[address] PATIENT WILL BE ACCEPTED BY [facility] & [facility] WILL PROVIDE HIS FEEDING SUPPLY. MITCH MILLER [facility] WILL BE CONTACTING THE PATIENT'S NEPHEW TO SET UP A TEACH TIME. I SPOKE WITH YEVGENIY HIS NEPHEW THIS MORNING ABOUT WHAT THE PLAN WAS. HE STATED THAT HIS UNCLE CALLED HIM ALL NIGHT LONG AND WAS VERY CONFUSED AND HE IS USUALLY NOT CONFUSED AT ALL. CM WILL CONTINUE TO FOLLOW AND ASSIST NEEDED DCP- Discharge Planning Updated by [id number]: Charlene Ng on 10/08/19 11:[address] Patient Name: SHE MULTANI Admission Status: Elective Accout number: [id number] Admission Date: 10-06-2019 : 1935 Admission Diagnosis: Attending: HAKAN MEYER Current LOS: 2 Anticipated DC Date: Planned Disposition: Home with Home Health Primary Insurance: MEDICARE A & B Discharge Planning Comments: CM met with patient to complete initial dc planning assessment. CM educated patient on the CM role and verbal consent given by patient to complete assessment. Patient lives at home with his nephew. At discharge patient plans to return home and feels this is a safe discharge. CM discussed availability of home health, rehab services, and medical equipment. Patient has a wheelchair, walker and grab bars at home. His nephew will be his electric screw driver operator home. He has a new PEG tube and will need teaching and education on that. EUGENE signed with [facility]. I will send referral to [facility]. Patient denied known discharge needs at this time. CM will continue to follow and will assist as needed with dc plans/needs. Painting Manager: Charlene Ng DCPIA - Discharge Planning Initial Assessment Updated by [id number]: Charlene Ng on 10/08/19 12:03 pm * Is the patient Alert and Oriented? Yes * How many steps to enter\\exit or inside your home? * PCP NANNETTE LIRA * Pharmacy [facility] [address] * Preadmission Environment Home with Family * ADLs Independent * Equipment Grab Bars Rolling Walker Wheelchair * List name and contact numbers for known caregivers / representatives who currently or will assist patient after discharge: YEVGENIY (NEPHEW) [phone] * Verbal permission to speak to the caregivers and representatives has been obtained from the patient. N/A * Community resources currently utilized None * Additional services required to return to the preadmission environment? Yes * Can the patient safely return to the preadmission environment? Yes * Has this patient been hospitalized within the prior 30 days at any hospital? No Coverage Notice Reviewer: [id number] Antonieta Ng Notice Issued Date-Time: 10/08/2019 9:20 Notice Type: IM Discharge Notice Notice Delivered To: Patient Relationship to Patient: Change Over Name: Delivery Method: HAND - Hand Delivered Cecy Days: Prior Verbal Notification: Recipient Understood Notice: Yes Recipient Signature: Yes Med Rec Note Co-signed by Attending: Coverage Notice Comment: Reviewer: [id number] Antonieta Ng Notice Issued Date-Time: 10/08/2019 9:30 Notice Type: Patient Choice Letter Notice Delivered To: Patient Relationship to Patient: Change Over Name: Delivery Method: HAND - Hand Delivered Ccey Days: Prior Verbal Notification: Recipient Understood Notice: Yes Recipient Signature: Yes Med Rec Note Co-signed by Attending: Coverage Notice Comment: eugene hall Reviewer: [id number] Miranda Notice Issued Date-Time: 10/22/2019 14:05 Notice Type: IM Discharge Notice Notice Delivered To: Family Member Relationship to Patient: Nephew Change Over Name: YEVGENIY SIDDIQI Delivery Method: PHONE - Phone Cecy Days: Prior Verbal Notification: Recipient Understood Notice: Yes Recipient Signature: Med Rec Note Co-signed by Attending: Coverage Notice Comment: Reviewer: [id number] Miranda Notice Issued Date-Time: 10/22/2019 14:05 Notice Type: Patient Choice Letter Notice Delivered To: Family Member Relationship to Patient: Nephew Change Over Name: YEVGENIY SIDDIQI Delivery Method: PHONE - Phone Cecy Days: Prior Verbal Notification: Recipient Understood Notice: Yes Recipient Signature: Med Rec Note Co-signed by Attending: Coverage Notice Comment: DIANA Piña DP export: 10/22/19 3:20 p Patient Name: SHE MULTANI Page [id number] at 1318 All edits/amendments must be made on the electronic document DICTATION DATE: 10/23/19 1318 CONCRETE MIXING PLANT LABORER: CYNDI 10/23/19 1318 RPT#: [id number] DC DATE: STATUS: ADM IN [facility] [address] [place] [address] END OF REPORT
--- NOTE | 2019-10-23 13:40 | MORECARE ---
CASE MANAGEMENT DISCHARGE SUMMARY PATIENT: SHE MULTANI UNIT: [id number] ADM DATE: 10/06/19 AGE: 84 : 33 SEX: M ROOM/BED: D.6853 AUTHOR: CAT,DOC PHYSICIAN: REFERRING PHYSICIAN: HAKAN MEYER MD DATE OF SERVICE: 10/23/19 Discharge Plan Patient Name: SHE MULTANI Facility: [facility]:[place] : 1935 Planned Disposition: Nursing Home Facility Anticipated Discharge Date: 10/22/19 Discharge Date: Expected LOS: 16 Initial Reviewer: [id number] Initial Review Date: 10/06/2019 Generated: 10/23/19 2:40 pm Comments DCP- Discharge Planning Updated by [id number]: Humphrey Miranda on 10/23/19 12:[address] Patient Name: SHE MULTANI Encounter No: [id number] : 1935 Primary Insurance: MEDICARE A & B Anticipated DC Date: 10-22-2019 Planned Disposition: Nursing Home Facility External Planned Provider: [facility], MEDICARE REHAB BED DCP follow-up note: CM RECEIVED CALL FROM PT'S NEPHEW, YEVGENIY VIDES AT [phone], NOTIFIED OF WAITING ON [facility] FOR DETERMINATION. YEVGENIY IS IN AGREEMENT WITH SHELTER AT THE [facility] IF ACCEPTED. CM RECEIVED CALL FROM [facility], PT IS OUT OF NON COPAY DAYS AND HAS 80 DAYS WITH COPAY. PT IS OVER LIMIT FOR MEDICAID ADN NOT VA CONTRACT ELIGIBLE. DIANN HAS DISCUSSED THIS WITH PT'S NEPHEW YEVGENIY WHO IS IN AGREEMENT WITH REHAB AT THE [facility] AND WILL PAY COPAY FOR 10 DAYS. THE [facility] STOCKS [facility] AND THEY WILL NEED ORDERS FOR FEEDING; CM EXPLAINED THAT THE ORDER ALREADY FAXED STATES "OR EQUIVILENT". DIANN ASKED FOR CLAIFICATION. MILES SPOKE TO [facility] TECHNICIAN DUARTE WHO PROVIDED CLARIFICATION. CM FAXED [facility] TECHNICIAN NOTE AND DISCHARGE INFORMATION TO [facility] AT [phone]. CM WAITING ADMISSION DETERMINATION FROM [facility]. Humphrey Miranda, CASE MANAGEMENT Appended by Humphrey Miranda on 10/23/2019 13:33 CDT: CM RECEIVED MESSAGE FROM DIANN OF THE [facility], THEY ARE ACCEPTING PT AND WILL INSTRUCTIONAL ASSISTANT IN ABOUT 30 MINUTES. CM NOTIFED PT IN ROOM, YEVGENIY VIA PHONE WHO WAS AWARE AND IN AGREEMENT; YEVGENIY ON THE WAY TO FILL OUT ADMISSION PAPERWORK AT THE [facility]. WARD SERVICE SUPERVISOR NURSE NOTIFIED. CM FAXED DISCHARGE INFORMATION TO THE [facility]IA [employer] AT [phone]. NURSE REPORT TO BE CALLED TO THE [facility] AT [phone]. THE [facility] PICKING UP PT TODAY AT APPROXIMATELY 1340 HOURS. Ester WILLARD ASE MANAGEMENT DCP- Discharge Planning Updated by [email or web address]: Humphrey Miranda on 10/22/19 3:[address] Patient Name: SHE MULTANI Encounter No: [id number] : 1935 Primary Insurance: MEDICARE A & B Anticipated DC Date: 10-22-2019 Planned Disposition: Nursing Home Facility External Planned Provider: [facility], MEDICARE REHAB BED DCP follow-up note: CM RECEIVED DISCHARGE ORDER, SPOKE TO PT IN ROOM WHO IS IN AGREEMENT WITH DISCHARGE TODAY, ASKED CM TO CALL HIS NEPHEW, YEVGENIY. CM CALLED YEVGENIY VIDES AT [phone], NOTIFIED OF DISCHARGE TODAY. YEVGENIY STATED HE WAS SUPRISED OF DISCHARGE AND PT IS NOT STRONG ENOUGH TO GO HOME YET. CM DISCUSSED REHAB OPTIONS. YEVGENIY IS IN AGREEMENT WITH SHELTER BUT USED 20 NON COPAY MEDICARE DAYS AT [place] AND PT CANNOT AFFORD THE COPAY. PT DOES HAVE VA BENEFITS. CM DISCUSSED REFERRING TO [facility] IN [place], WHO HAS A VA CONTRACT AND CM COULD HAVE THE [facility] CHECK WITH THE VA TO SEE IF THEY WILL COVER THE COPAY THAT MEDICARE DOES NOT. YEVGENIY IN AGREEMENT. CHOICE COMPLETED. MILES DISCUSSED IMPORTANT MESSAGE FROM MEDICARE, YEVGENIY REPORTS HAVING FIRST COPY PROVIDED BY MILES. CM LEFT SECOND COPY IN ROOM WITH PT TODAY. CM NOTIFIED VIDHI GUERRIER AND WARD SERVICE SUPERVISOR NURSE. CM FAXED REFERRAL TO [facility]IA [employer] AT [phone]. CM NOTIFED DIANN OF REFERRAL AT [phone]. CM WAITING ADMISSION DETERMINATION FROM [facility]. Humphrey Miranda CASE MELIA DCP- Discharge Planning Updated by [id number]: Humphrey Miranda on 10/22/19 9:[address] Patient Name: SHE MULTANI Encounter No: [id number] : 1935 Primary Insurance: MEDICARE A & B Anticipated DC Date: Planned Disposition: Home with Home Health External Planned Provider: [facility], [facility] DCP follow-up note: CM FAXED UPDATE TO [facility], . CM FAXED UPDATE TO [facility] AT [phone]. NEPHEW STILL PLANS FOR PT TO RETURN HOME AT DISCHARGE WITH BOLUS FEEDS. FOR DISCHARGE HOME WITH NEPHEW, NOTIFY [facility] AT [phone], FAX DISCHARGE INFORMATION TO [facility] AT [phone]. NOTIFY [facility] AT [phone], [facility] TO ARRANGE HOME DELIVERY OF FEEDING MATERIAL AND EQUIPMENT. CM TO CONTINUE TO FOLLOW AND ASSIST NEEDED. Humphrey Miranda, CASE MANAGEMENT Appended by Humphrey Miranda on 10/22/2019 10:49 CDT: FOR DISCHARGE HOME WITH NEPHEW, [facility] WILL NEED TUBE FEED ORDER TO SPECIFY FORMULA WITH SPECIFIC PHRASE "OR EQIVILENT." NOTIFY [facility] AT [phone], FAX DISCHARGE INFORMATION TO [facility] AT [phone]. NOTIFY [facility] AT [phone], [facility] TO ARRANGE HOME DELIVERY OF FEEDING MATERIAL AND EQUIPMENT. CM TO CONTINUE TO FOLLOW AND ASSIST NEEDED. Humphrey Miranda, CASE MANAGEMENT DCP- Discharge Planning Updated by [id number]: Charlene Ng on 10/09/19 12:[address] PATIENT WILL BE ACCEPTED BY [facility] & [facility] WILL PROVIDE HIS FEEDING SUPPLY. [facility] WILL BE CONTACTING THE PATIENT'S NEPHEW TO SET UP A TEACH TIME. I SPOKE WITH YEVGENIY HIS NEPHEW THIS MORNING ABOUT WHAT THE PLAN WAS. HE STATED THAT HIS UNCLE CALLED HIM ALL NIGHT LONG AND WAS VERY CONFUSED AND HE IS USUALLY NOT CONFUSED AT ALL. CM WILL CONTINUE TO FOLLOW AND ASSIST NEEDED DCP- Discharge Planning Updated by [id number]: Charlene Ng on 10/08/19 11:[address] Patient Name: SHE MULTANI Admission Status: Elective Accout number: [id number] Admission Date: 10-06-2019 : 1935 Admission Diagnosis: Attending: HAKAN MEYER Current LOS: 2 Anticipated DC Date: Planned Disposition: Home with Home Health Primary Insurance: MEDICARE A & B Discharge Planning Comments: CM met with patient to complete initial dc planning assessment. CM educated patient on the CM role and verbal consent given by patient to complete assessment. Patient lives at home with his nephew. At discharge patient plans to return home and feels this is a safe discharge. CM discussed availability of home health, rehab services, and medical equipment. Patient has a wheelchair, walker and grab bars at home. His nephew will be his dairy truck driver home. He has a new PEG tube and will need teaching and education on that. EUGENE signed with [employer]. I will send referral to [facility]. Patient denied known discharge needs at this time. CM will continue to follow and will assist as needed with dc plans/needs. Wheel Cleaner: Charlene Ng DCPIA - Discharge Planning Initial Assessment Updated by [id number]: Charlene Ng on 10/08/19 12:03 pm * Is the patient Alert and Oriented? Yes * How many steps to enter\\exit or inside your home? * PCP NANNETTE LIRA * Pharmacy [facility] [address] * Preadmission Environment Home with Family * ADLs Independent * Equipment Grab Bars Rolling Walker Wheelchair * List name and contact numbers for known caregivers / representatives who currently or will assist patient after discharge: YEVGENIY (NEPHEW) [phone] * Verbal permission to speak to the caregivers and representatives has been obtained from the patient. N/A * Community resources currently utilized None * Additional services required to return to the preadmission environment? Yes * Can the patient safely return to the preadmission environment? Yes * Has this patient been hospitalized within the prior 30 days at any hospital? No Coverage Notice Reviewer: [id number] Antonieta Miranda Notice Issued Date-Time: 10/22/2019 14:05 Notice Type: Patient Choice Letter Notice Delivered To: Family Member Relationship to Patient: Nephew Donor Services Coordinator Name: YEVGENIY SIDDIQI Delivery Method: PHONE - Phone Cecy Days: Prior Verbal Notification: Recipient Understood Notice: Yes Recipient Signature: Med Rec Note Co-signed by Attending: Coverage Notice Comment: KYLEE DONAHUE Reviewer: [id number] Antonieta Miranda Notice Issued Date-Time: 10/22/2019 14:05 Notice Type: IM Discharge Notice Notice Delivered To: Family Member Relationship to Patient: Nephew Donor Services Coordinator Name: YEVGENIY SIDDIQI Delivery Method: PHONE - Phone Cecy Days: Prior Verbal Notification: Recipient Understood Notice: Yes Recipient Signature: Med Rec Note Co-signed by Attending: Coverage Notice Comment: Reviewer: [email or web address] Ng Notice Issued Date-Time: 10/08/2019 9:30 Notice Type: Patient Choice Letter Notice Delivered To: Patient Relationship to Patient: Donor Services Coordinator Name: Delivery Method: HAND - Hand Delivered Cecy Days: Prior Verbal Notification: Recipient Understood Notice: Yes Recipient Signature: Yes Med Rec Note Co-signed by Attending: Coverage Notice Comment: eugene hall Reviewer: [id number] Antonieta Ng Notice Issued Date-Time: 10/08/2019 9:20 Notice Type: IM Discharge Notice Notice Delivered To: Patient Relationship to Patient: Donor Services Coordinator Name: Delivery Method: HAND - Hand Delivered Cecy Days: Prior Verbal Notification: Recipient Understood Notice: Yes Recipient Signature: Yes Med Rec Note Co-signed by Attending: Coverage Notice Comment: Last DP export: 10/23/19 12:18 p Patient Name: SHE MULTANI Page 11911 at 1340 All edits/amendments must be made on the electronic document DICTATION DATE: 10/23/19 1340 REPAIRER PUMP: CYNDI 10/23/19 1340 RPT#: [id number] DC DATE: STATUS: ADM IN [facility] [address] [place] [address] END OF REPORT
--- NOTE | 2019-10-23 13:50 | NUR ---
REPORT CALLED TO VIOLA ROBERT AT [facility]
--- NOTE | 2019-10-23 14:40 | NUR ---
DCD SALINE LOCK TO RT UPPER ARM AND RFA WITH IV CATHETERS INTACT SITES FREE OF REDNESS OR EDEMA REVIWED DISCHARGE INSTRUCTIONS WITH PT STATES UNDERSTANDING UNABLE TO SIGN COPY SENT WITH PT LEFT VIA W/C WITH ALL PERSONAL BELONGINGS VIA THE [employer]
--- NOTE | 2019-10-23 15:22 | MORECARE ---
CASE MANAGEMENT DISCHARGE SUMMARY PATIENT: SHE MULTANI UNIT: [id number] ADM DATE: 10/06/19 AGE: 84 : 33 SEX: M ROOM/BED: D.2631 AUTHOR: CAT,DOC PHYSICIAN: REFERRING PHYSICIAN: HAKAN MEYER MD DATE OF SERVICE: 10/23/19 Discharge Plan Patient Name: SHE MULTANI Facility: [facility]:[place] : 1935 Planned Disposition: Shelter Facility Anticipated Discharge Date: 10/23/19 Discharge Date: 10/23/2019 Expected LOS: 17 Initial Reviewer: [id number] Initial Review Date: 10/06/2019 Generated: 10/23/19 4:22 pm Comments DCP- Discharge Planning Updated by [id number]: Humphrey Miranda on 10/23/19 12:[address] Patient Name: SHE MULTANI Encounter No: [id number] : 1935 Primary Insurance: MEDICARE A & B Anticipated DC Date: 10-22-2019 Planned Disposition: Shelter Facility External Planned Provider: [facility], MEDICARE REHAB BED DCP follow-up note: CM RECEIVED CALL FROM PT'S NEPHEW, YEVGENIY VIDES AT [phone], NOTIFIED OF WAITING ON THE [facility] FOR DETERMINATION. YEVGENIY IS IN AGREEMENT WITH RESIDENTIAL AT THE [facility] IF ACCEPTED. CM RECEIVED CALL FROM ANTHONY OF [facility], PT IS OUT OF NON COPAY DAYS AND HAS 80 DAYS WITH COPAY. PT IS OVER LIMIT FOR MEDICAID ADN NOT VA CONTRACT ELIGIBLE. DIANN HAS DISCUSSED THIS WITH PT'S NEPHEW YEVGENIY WHO IS IN AGREEMENT WITH REHAB AT THE [facility] AND WILL PAY COPAY FOR 10 DAYS. THE [facility] STOCKS [facility] AND THEY WILL NEED ORDERS FOR FEEDING; CM EXPLAINED THAT THE ORDER ALREADY FAXED STATES "OR EQUIVILENT". DIANN ASKED FOR CLAIFICATION. CM SPOKE TO [employer] ENGINEERPAPO RAMACHANDRAN WHO PROVIDED CLARIFICATION. CM FAXED CORROSION ENGINEER NOTE AND DISCHARGE INFORMATION TO AN[facility]ONY OF [facility] AT [phone]. CM WAITING ADMISSION DETERMINATION FROM [facility]. Humphrey Miranda, CASE MANAGEMENT Appended by Humphrey Miranda on 10/23/2019 13:33 CDT: CM RECEIVED MESSAGE FROM DIANN OF THE [facility], THEY ARE ACCEPTING PT AND WILL QUALITY ENGINEER MEDICAL DEVICE IN ABOUT 30 MINUTES. CM NOTIFED PT IN ROOM, YEVGENIY VIA PHONE WHO WAS AWARE AND IN AGREEMENT; YEVGENIY ON THE WAY TO FILL OUT ADMISSION PAPERWORK AT THE [facility]. CHIEF BANK EXAMINER NURSE NOTIFIED. CM FAXED DISCHARGE INFORMATION TO THE [facility] VIA [facility] AT [phone]. NURSE REPORT TO BE CALLED TO THE [facility] AT [phone]. [facility] PICKING UP PT TODAY AT APPROXIMATELY 1340 HOURS. Ester WILLARD MANAGEMENT DCP- Discharge Planning Updated by [id number]: Humphrey Miranda on 10/22/19 3:[address] Patient Name: SHE MULTANI Encounter No: [id number] : 1935 Primary Insurance: MEDICARE A & B Anticipated DC Date: 10-22-2019 Planned Disposition: Shelter Facility External Planned Provider: [facility], MEDICARE REHAB BED DCP follow-up note: CM RECEIVED DISCHARGE ORDER, SPOKE TO PT IN ROOM WHO IS IN AGREEMENT WITH DISCHARGE TODAY, ASKED CM TO CALL HIS NEPHEW, YEVGENIY. CM CALLED YEVGENIY VIDES AT [phone], NOTIFIED OF DISCHARGE TODAY. YEVGENIY STATED HE WAS SUPRISED OF DISCHARGE AND PT IS NOT STRONG ENOUGH TO GO HOME YET. CM DISCUSSED REHAB OPTIONS. YEVGENIY IS IN AGREEMENT WITH RESIDENTIAL BUT USED 20 NON COPAY MEDICARE DAYS AT [place] AND PT CANNOT AFFORD THE COPAY. PT DOES HAVE VA BENEFITS. MILES DISCUSSED REFERRING TO THE [facility] IN [place], WHO HAS A VA CONTRACT AND CM COULD HAVE THE [facility] CHECK WITH THE VA TO SEE IF THEY WILL COVER THE COPAY THAT MEDICARE DOES NOT. YEVGENIY IN AGREEMENT. CHOICE COMPLETED. MILES DISCUSSED IMPORTANT MESSAGE FROM MEDICARE, YEVGENIY REPORTS HAVING FIRST COPY PROVIDED BY [facility]. CM LEFT SECOND COPY IN ROOM WITH PT TODAY. CM NOTIFIED VIDHI GUERRIER AND CHIEF BANK EXAMINER NURSE. CM FAXED REFERRAL TO THE [facility] VIA [facility] AT [phone]. CM NOTIFED DIANN OF REFERRAL AT [phone]. CM WAITING ADMISSION DETERMINATION FROM THE [facility]. Humphrey Miranda CASE MELIA DCP- Discharge Planning Updated by [id number]: Humphrey Miranda on 10/22/19 9:[address] Patient Name: SHE MULTANI Encounter No: [id number] : 1935 Primary Insurance: MEDICARE A & B Anticipated DC Date: Planned Disposition: Home with Home Health External Planned Provider: [facility], [email or web address] DCP follow-up note: CM FAXED UPDATE TO [facility], . CM FAXED UPDATE TO [email or web address] AT [phone]. NEPHEW STILL PLANS FOR PT TO RETURN HOME AT DISCHARGE WITH BOLUS FEEDS. FOR DISCHARGE HOME WITH NEPHEW, NOTIFY [facility] AT [phone], FAX DISCHARGE INFORMATION TO [facility] AT [phone]. NOTIFY [email or web address] AT [phone], [email or web address] TO ARRANGE HOME DELIVERY OF FEEDING MATERIAL AND EQUIPMENT. CM TO CONTINUE TO FOLLOW AND ASSIST NEEDED. Humphrey Miranda, CASE MANAGEMENT Appended by Humphrey Miranda on 10/22/2019 10:49 CDT: FOR DISCHARGE HOME WITH NEPHEW, [facility] WILL NEED TUBE FEED ORDER TO SPECIFY FORMULA WITH SPECIFIC PHRASE "OR EQIVILENT." NOTIFY [facility] AT [phone], FAX DISCHARGE INFORMATION TO [facility] AT [phone]. NOTIFY [email or web address] AT [phone], [email or web address] TO ARRANGE HOME DELIVERY OF FEEDING MATERIAL AND EQUIPMENT. CM TO CONTINUE TO FOLLOW AND ASSIST NEEDED. Humphrey Miranda, CASE MANAGEMENT DCP- Discharge Planning Updated by [id number]: Charlene Ng on 10/09/19 12:[address] PATIENT WILL BE ACCEPTED BY [facility] & [email or web address] WILL PROVIDE HIS FEEDING SUPPLY. [facility] WILL BE CONTACTING THE PATIENT'S NEPHEW TO SET UP A TEACH TIME. I SPOKE WITH YEVGENIY HIS NEPHEW THIS MORNING ABOUT WHAT THE PLAN WAS. HE STATED THAT HIS UNCLE CALLED HIM ALL NIGHT LONG AND WAS VERY CONFUSED AND HE IS USUALLY NOT CONFUSED AT ALL. CM WILL CONTINUE TO FOLLOW AND ASSIST NEEDED DCP- Discharge Planning Updated by [id number]: Charlene Ng on 10/08/19 11:[address] Patient Name: SHE MULTANI Admission Status: Elective Accout number: [id number] Admission Date: 10-06-2019 : 1935 Admission Diagnosis: Attending: HAKAN MEYER Current LOS: 2 Anticipated DC Date: Planned Disposition: Home with Home Health Primary Insurance: MEDICARE A & B Discharge Planning Comments: CM met with patient to complete initial dc planning assessment. CM educated patient on the CM role and verbal consent given by patient to complete assessment. Patient lives at home with his nephew. At discharge patient plans to return home and feels this is a safe discharge. CM discussed availability of home health, rehab services, and medical equipment. Patient has a wheelchair, walker and grab bars at home. His nephew will be his package delivery driver home. He has a new PEG tube and will need teaching and education on that. EUGENE signed with [employer] [facility]. I will send referral to [employer]. Patient denied known discharge needs at this time. CM will continue to follow and will assist as needed with dc plans/needs. Equipment Operator/Laborer/Supervisor: Charlene Ng DCPIA - Discharge Planning Initial Assessment Updated by [id number]: Charlene Ng on 10/08/19 12:03 pm * Is the patient Alert and Oriented? Yes * How many steps to enter\\exit or inside your home? * PCP NANNETTE LIRA * Pharmacy [facility] ON [address] * Preadmission Environment Home with Family * ADLs Independent * Equipment Grab Bars Rolling Walker Wheelchair * List name and contact numbers for known caregivers / representatives who currently or will assist patient after discharge: YEVGENIY (NEPHEW) [phone] * Verbal permission to speak to the caregivers and representatives has been obtained from the patient. N/A * Community resources currently utilized None * Additional services required to return to the preadmission environment? Yes * Can the patient safely return to the preadmission environment? Yes * Has this patient been hospitalized within the prior 30 days at any hospital? No Coverage Notice Reviewer: [email or web address] Antonieta Ng Notice Issued Date-Time: 10/08/2019 9:20 Notice Type: IM Discharge Notice Notice Delivered To: Patient Relationship to Patient: Marble Polisher Name: Delivery Method: HAND - Hand Delivered Cecy Days: Prior Verbal Notification: Recipient Understood Notice: Yes Recipient Signature: Yes Med Rec Note Co-signed by Attending: Coverage Notice Comment: Reviewer: [id number] Antonieta Ng Notice Issued Date-Time: 10/08/2019 9:30 Notice Type: Patient Choice Letter Notice Delivered To: Patient Relationship to Patient: Marble Polisher Name: Delivery Method: HAND - Hand Delivered Cecy Days: Prior Verbal Notification: Recipient Understood Notice: Yes Recipient Signature: Yes Med Rec Note Co-signed by Attending: Coverage Notice Comment: eugene hall Reviewer: OJHN Miranda Notice Issued Date-Time: 10/22/2019 14:05 Notice Type: IM Discharge Notice Notice Delivered To: Family Member Relationship to Patient: Nephew Marble Polisher Name: YEVGENIY SIDDIQI Delivery Method: PHONE - Phone Cecy Days: Prior Verbal Notification: Recipient Understood Notice: Yes Recipient Signature: Med Rec Note Co-signed by Attending: Coverage Notice Comment: Reviewer: [id number] Miranda Notice Issued Date-Time: 10/22/2019 14:05 Notice Type: Patient Choice Letter Notice Delivered To: Family Member Relationship to Patient: Nephew Marble Polisher Name: YEVGENIY SIDDIQI Delivery Method: PHONE - Phone Cecy Days: Prior Verbal Notification: Recipient Understood Notice: Yes Recipient Signature: Med Rec Note Co-signed by Attending: Coverage Notice Comment: DIANA Piña DP export: 10/23/19 12:40 p Patient Name: SHE MULTANI Page [id number] at 1522 All edits/amendments must be made on the electronic document DICTATION DATE: 10/23/191521 SHOT HOLE DRILLER: CYNDI 10/23/19 152 RPT#: [id number] DC DATE:10/23/19 STATUS: DIS IN [facility] [address] [place] [address] END OF REPORT
== END 2019-10-23 14:40 | disposition home health service (06) | DRG 326 ==
LOC: D.MS 16:49 → D.M2 16:49 → D.ICU 16:49 → D.M2 10-13 02:11 → D.MS 10-13 03:29 → D.ICU 10-15 17:41 → D.M2 10-17 14:27
PROVIDERS: Family Medicine; Internal Medicine Hematology & Oncology; Internal Medicine Pulmonary Disease; Surgery; ADMIT Internal Medicine Nephrology; ATTEND Internal Medicine Nephrology
PROC: 0DJ08ZZ Inspection of Upper Intestinal Tract, Via Natural or Artificial Opening Endoscopic (ICD-10-PCS; 2019-10-07)
PROC: 0DH63UZ Insertion of Feeding Device into Stomach, Percutaneous Approach (ICD-10-PCS; principal; 2019-10-07 16:15)
PROC: 0D964ZZ Drainage of Stomach, Percutaneous Endoscopic Approach (ICD-10-PCS; 2019-10-09)
PROC: 0D9W4ZZ Drainage of Peritoneum, Percutaneous Endoscopic Approach (ICD-10-PCS; 2019-10-09)
PROC: 0DW64UZ Revision of Feeding Device in Stomach, Percutaneous Endoscopic Approach (ICD-10-PCS; 2019-10-09 19:26)
DX: R13.12 Dysphagia, oropharyngeal phase (principal); J69.0 Pneumonitis due to inhalation of food and vomit; E43 Unspecified severe protein-calorie malnutrition; G93.41 Metabolic encephalopathy; K65.1 Peritoneal abscess; I50.21 Acute systolic (congestive) heart failure; J96.01 Acute respiratory failure with hypoxia; N17.9 Acute kidney failure, unspecified; J90 Pleural effusion, not elsewhere classified; Z68.1 Body mass index [BMI] 19.9 or less, adult; K94.23 Gastrostomy malfunction; E87.1 Hypo-osmolality and hyponatremia; Z91.19 Patient's noncompliance with other medical treatment and regimen; D50.9 Iron deficiency anemia, unspecified; I10 Essential (primary) hypertension; R00.0 Tachycardia, unspecified; I11.0 Hypertensive heart disease with heart failure; I45.19 Other right bundle-branch block; I69.320 Aphasia following cerebral infarction; Z86.73 Personal history of transient ischemic attack (TIA), and cerebral infarction without residual deficits